=== PATIENT | female | born 1940 | race Caucasian/White ===

== ENCOUNTER 2021-05-10 09:48 | Inpatient (IN) | payer MEDICARE, MEDICAID, SELFPAY ==
[2021-05-10] VITALS (16 sets, daily range): BP systolic 80–121; BP diastolic 52–85; PULSE 49–85; RESP 16–22; TEMP 36.2–36.9; O2SAT 92–100; BMI 23.6
--- NOTE | ~2021-05-10 | CT_ITS ---
EXAMINATION: CTA chest PE protocol DATE: 05/10/2021 12:01 INDICATION: Shortness of breath. TECHNIQUE: Computed tomography angiography (CTA) of the chest was performed with 100 mL Omnipaque-350 intravenous contrast timed to evaluate the pulmonary arteries. Coronal maximum intensity projection 3D-reconstructions were created by the technologist. Automated exposure control and iterative reconst ruction technique were employed. The dose-length product was 340.30 mGy-cm. COMPARISON: Chest 2 views 05/10/2021 FINDINGS: There is moderate emphysema. There is mild atelectasis bilaterally. There are mild peripher al groundglass opacities in left upper lobe and left lower lobe. There are peripheral airspace opacit ies in right lower lobe and right middle lobe. There is mucous plugging in right lower lobe. There is a trace right pleural effusion. The heart size is normal. There are coronary artery calcifications. No pericardial effusion. There is no pulmonary embolus. There is mild right hilar lymphadenopathy. Th ere is severe thoracic spondylosis. There is chronic anterior wedging of multiple thoracic vertebral bodies. There are old healed fractures of left ninth, 10th, and 11th ribs. IMPRESSION: 1. No pulmonary embolus. 2. Peripheral airspace opacities in right lower lobe and right middle lobe, consistent with pneumonia . Mild peripheral groundglass opacities in left lung may be inflammation or infection. Consider nonco ntrast, low-dose chest CT in 3 months to exclude malignancy. 3. Moderate emphysema. 4. Mild right hilar lymphadenopathy, likely reactive. Reviewed, dictated and finalized at location A. IMPRESSION: 1. No pulmonary embolus. 2. Peripheral airspace opacities in right lower lobe and right middle lobe, con sistent with pneumonia. Mild peripheral groundglass opacities in left lung may be inflammation or infection. Consider noncontrast, low-dose chest CT in 3 leslye hs to exclude malignancy. 3. Moderate emphysema. 4. Mild right hilar lymphadenopathy, likely reactive.
--- NOTE | ~2021-05-10 | CT_ITS ---
EXAMINATION: CT brain wo con EXAM DATE: 05/10/2021 12:01 INDICATION: Transient alteration of awareness. TECHNIQUE: Spiral CT of the head was performed without contrast. Axial, coronal and sagittal images were reviewed. The dose-length product (DLP) for this examination was 605.33 mGy-cm. The exposure w as tailored according to patient size, and iterative reconstruction (ASIR) was used as additional dos e reduction technique. There is no prior study for comparison. FINDINGS: There is no acute intraparenchymal hemorrhage. No evidence of intraparenchymal brain mass lesion. No evidence of acute infarction. Please note that initial head CT has limited sensitivity f or small or acute infarctions. There is mild periventricular and subcortical hypodensity, nonspecific but probably related to small vessel ischemic disease. There is mild prominence of the sulci and v entricles related to cerebral atrophy. There is intracranial carotid arteriosclerosis. There are n o extra-axial collections. There is no mass effect or midline shift. Patient has had bilateral ocul ar lens surgery. Soft tissue is unremarkable. The visualized sinuses and mastoid air cells are well aerated. IMPRESSION: 1. No acute intracranial findings. 2. Chronic age related findings. Reviewed, dictated and finalized at location A.
--- NOTE | ~2021-05-10 | XR_ITS ---
EXAMINATION: XR chest 2V DATE: 05/10/2021 10:22 INDICATION: Weakness. Transient alteration of awareness. TECHNIQUE: Frontal and lateral views of the chest were obtained on 3 radiographs. COMPARISON: None. FINDINGS: There are peripheral interstitial opacities in the mid and lower lung zones. No pleural eff usion or pneumothorax. The heart size is normal. There are are old left rib fractures. There is a com pression fracture in lower thoracic spine, likely chronic. IMPRESSION: 1. Interstitial opacities in the mid and lower lung zones, consistent with mild pulmonary edema versu s chronic lung disease. Reviewed, dictated and finalized at location A. IMPRESSION: 1. Interstitial opacities in the mid and lower lung zones, consistent with mild pulmonary edema versus chronic lung disease.
--- NOTE | 2021-05-10 10:06 | ECG_ITS ---
Measurements Intervals [place] Rate: 79 P: AL: 0 QRS: 77 QRSD: 100 T: 66 QT: 387 QTc: 445 Interpretive Statements ATRIAL FIBRILLATION INCOMPLETE RIGHT BUNDLE BRANCH BLOCK NONSPECIFIC ST & T-WAVE ABNORMALITY- ANTEROLATERAL LEADS BASELINE ARTIFACT- V3, V5-V6 ABNORMAL ECG Electronically Signed On 05-10-2021 10:27:53 CDT by Ziyad Davila D.O.
[2021-05-10 10:21] LABS: Basophils Percent Auto 0.2 % (0.2-1.2); Eosinophils Percent Auto 0.1 % (0-4.4); Hematocrit 41.1 % (37.0-47.0); Hemoglobin 13.1 g/dL (12.0-15.0); Immature Granulocyte Absolute 0.05 K/mm3 (0.00-0.031); Immature Granulocyte Percent A 0.5 % (0-0.5); Lymphocytes Absolute Auto 1.04 K/mm3 (0.9-3.2); Lymphocytes Percent Auto 11.3 % (18.3-44.2); Mean Corpuscular HGB Conc 31.9 g/dl (32-36); Mean Corpuscular Hemoglobin 31.2 pg (26-34); Mean Corpuscular Volume 97.9 fl (80-100); Mean Platelet Volume 11.8 fl (7.4-10.4); Monocytes Absolute Auto 0.6 K/mm3 (0.1-0.6); Monocytes Percent Auto 6.2 % (2.6-8.5); Neutrophils Absolute Auto 7.5 K/mm3 (1.3-6.7); Neutrophils Percent Auto 81.7 % (45.5-73.1); Platelet Count Result 127 k/mm3 (150-375); Red Cell Distribution Width 14.8 % (11.5-14.5); White Blood Count 9.2 K/mm3 (4.5-10.0)
[2021-05-10 10:25] LABS: Add Urine Microscopic? YES; Appearance Urine Clear (Clear); Bacteria Urine Trace /hpf; Bilirubin Urine Negative (Negative); Blood Urine Negative (Negative); Color Urine Yellow (Yellow); Glucose Urine UA Negative (Negative); Ketones Urine Negative (Negative); Leukocyte Esterase Ur Trace LEU/UL (Negative); Mucus Urine Rare /lpf; Nitrate Urine Negative (Negative); Protein Urine 1+ mg/dL (Negative); RBC Urine 0-2 /hpf (0-2); Specific Grav Ur 1.013 (1.001-1.035); Squamous Epithelial Cell Urine Moderate /hpf (Few); Urobilinogen Urine Negative mg/dL (<2.0)
[2021-05-10 10:37] LABS: Prothrombin Time 13.5 Seconds (11.1-14.7)
[2021-05-10 10:39] LABS: Partial Thromboplastin Time 34.1 SECONDS (22.3-36.8)
[2021-05-10 10:44] LABS: Alanine Aminotransferase 26 U/L (4-35); Albumin Level 3.2 g/dL (3.5-5.1); Alkaline Phosphatase 67 U/L (38-126); Anion Gap 8 mmol/L (8-16); Aspartate Amino Transferase 39 U/L (14-36); Bilirubin,Total 0.6 mg/dL (0.2-1.3); Blood Urea Nitrogen 14 mg/dL (7-17); Calcium 8.1 mg/dL (8.4-10.2); Carbon Dioxide 30 mmol/L (22-30); Chloride 98 mmol/L (98-107); Estimated CRCL calculation 61 ml/min; Estimated Glomerular Filt Rate > 60; Glucose 139 mg/dL (65-105); Potassium 3.6 mmol/L (3.4-5.0); Sodium 136 mmol/L (137-145); Troponin I 0.061 ng/mL (0.000-0.034)
[2021-05-10 10:49] LABS: CRP 12.3 mg/dL (<1.0)
[2021-05-10] MEDS: SODIUM CHLORIDE 0.9% IV 1,000 ML 999 ML IV CONT ×2 (11:04→13:29)
--- NOTE | 2021-05-10 11:10 | PC.NURSE ---
called lab and added on a D dimer and procalcitonin at 1110 talked to Brianna
[2021-05-10 11:17] LABS: Alveolar/Arterial O2 Gradient 55.4 mmHg; Base Excess ABG 2.4 mEq/l (+/-2.0); Carboxyhemoglobin 0.2 % THb (0-2.0); Fractional Inspired Oxygen 28 %; HCO3 ABG 27.9 mEq/l (22.0-26.0); Methemoglobin ABG 0.3 %THb (0-1.5); Oxygen Saturation ABG 96.7 % (95.0-100.0); Oxyhemoglobin 95.7 % THb (90.0-100.0); PCO2 ABG 46.9 mmHg (35.0-45.0); PO2 ABG 88.9 mmHg (80.0-100.0); PO2 FiO2 Ratio Arterial Blood 3.17 %; Reduced Hemoglobin 3.8 %THb (0-5.0); Total Hemoglobin 12.6 g/dL (12.0-18.0); pH ABG 7.392 (7.350-7.450)
[2021-05-10 11:18] LABS: Device NASAL CANNULA; Modified Allen's Test Pass; Site Drawn RIGHT RADIAL
[2021-05-10 11:37] LABS: D Dimer 1.39 ug/mL (<0.48)
[2021-05-10 11:40] LABS: Procalcitonin 0.1 ng/mL
--- NOTE | 2021-05-10 12:40 | ED.GENADULT ---
HPI - General Adult General Chief complaint: Weakness Stated complaint: Weakness,confusion Time Seen by Provider: 05/10/21 10:04 Source: patient, family and RN notes reviewed Mode of arrival: ambulatory Limitations: no limitations History of Present Illness HPI narrative: Patient is a 81-year-old female who presents with family for evaluation of dyspnea and weakness patient was also having bouts of confusion and altered mental status this morning. Family recently picked up the family member and brought them to this region from a different state where she was living with her son. Patient was kicked out of the home by the son and has been living in her vehicle. Family went and retrieved her in the last couple of days and upon returning home with her noticed that she had had some confusion and difficulty with breathing. Patient is on chronic O2 use and has history of COPD. Patient notes she has had a productive cough over the last several days. Patient in the room resting denying any pain upon arrival. Patient was also noted to have low blood pressure. Patient denies vomiting diarrhea chest pain Related Data Home Medications Medication Instructions Recorded Confirmed albuterol mcg INHALATION PRN 05/10/21 albuterol sulfate 2.5 mg INHALATION Q4H PRN 05/10/21 atorvastatin 20 mg PO DAILY 05/10/21 carvedilol [Coreg] 12.5 mg PO BID 05/10/21 cefdinir 300 mg PO Q12H 05/10/21 ergocalciferol (vitamin D2) See Rx Instructions .ROUTE .COMPLEX 05/10/21 fluticasone propionate [Flovent 2 puff INHALATION Q12H 05/10/21 HFA] gabapentin 300 mg PO TID 05/10/21 hydrocodone-acetaminophen [[place]] 1 tablet PO Q6H PRN 05/10/21 levothyroxine 25 mcg PO DAILY 05/10/21 sertraline 100 mg PO DAILY 05/10/21 umeclidinium-vilanterol [Anoro 1 inh INHALATION DAILY 05/10/21 Ellipta] vit C,N-Mh-snozd-lutein-zeaxan BID 05/10/21 [PreserVision AREDS-2] Allergies Allergy/AdvReac Type Severity Reaction Status Date / Time Unable to Assess Allergy Verified 05/10/21 10:06 Review of Systems Review of Systems: All systems reviewed & are unremarkable except as noted in HPI and below PMFSH Past Medical History Medical History (Updated 05/10/21 @ 13:36 by Kp Chaves PA-C) COPD (chronic obstructive pulmonary disease) Depression Hyperlipidemia Hypertension Hypothyroidism Hypoxemia Pain, chronic Social History Social History (Updated 05/10/21 @ 12:44 by Kp Chaves PA-C) Smoking status: Former smoker Gender identity (if verbalized by the patient): Female Exam Narrative: Exam Narrative: GENERAL: Ill-appearing, well-nourished, and in no acute distress. HEAD: Normocephalic, atraumatic. EYES: PERRLA and EOMI. ENT: Nares clear, no rhinorrhea or epistaxis. Mucous membranes moist. Oropharynx without tonsillar hypertrophy exudate or other lesions. NECK: Supple. No adenopathy or masses. CHEST: Clear to auscultation. No respiratory distress. No wheezes rales or rhonchi HEART: Regular rate and rhythm. No murmur heard. Normal peripheral pulses. ABDOMEN: Soft, nontender, nondistended EXTREMITIES: Normal range of motion. 1+ edema lower extremities SKIN: Warm, dry, no rash. NEURO: No focal deficits. Alert and oriented. Cranial nerves II through XII grossly intact PSYCH: Normal mood and affect. Course Course Emergency Course: Patient presented with upper respiratory symptoms and hypotension will be placed in hospital has been given 2 L of fluid with improvement of blood pressure updraft treatment antibiotics initiated will be swabbed for Covid and placed in the IMCU given her elevated troponin patient is denying any dyspnea or chest pain at this time Vital Signs Vital signs: Vital Signs Temperature 98.4 F 05/10/21 09:54 Pulse Rate 84 05/10/21 09:54 Respiratory Rate 22 H 05/10/21 09:54 Blood Pressure 84/52 L 05/10/21 09:54 Pulse Oximetry 92 05/10/21 09:54 Temperature 98.4 F 05/10/21 09:54 Pulse Rat
[2021-05-10] MEDS: IPRATROPIUM BR 0.02% INH SOLN 0.5 MG/2.5 ML VIAL INHALATION (13:22)
[2021-05-10] MEDS: ALBUTEROL SULFATE NEB 2.5 MG/0.5 ML INH 5 MG INHALATION (13:22)
[2021-05-10 13:43] LABS: Troponin I 0.052 ng/mL (0.000-0.034)
--- NOTE | 2021-05-10 14:20 | PC.NURSE ---
SBAR faxed and phone to receiving unit at [phone]. ED charge aware
--- NOTE | 2021-05-10 15:36 | PM.IMHP ---
H&P: HPI History of Present Illness Date/Time: 05/10/21 15:36 this is 81-year-old female patient who was brought in by her family members for evaluation of dyspnea on weakness. Patient was having bouts of confusion and altered status this morning. The patient had been living in [place] with her son but now lives with her other son in the area. The patient was recently retrieved from [place]. Patient is on chronic oxygen at 2 L per nasal cannula for COPD. She has had a productive cough for the last several days. She denies any fever. She also was noted to have low blood pressure. Her troponin was 0.061 and than 0.052. CRP is 12.3. Chest x-ray was read as interstitial opacities in the mid and lower lung zones consistent with mild pulmonary edema versus chronic lung disease. Head CT no acute intracranial findings. Chronic age-related findings. Chest CTA was read as. No pulmonary embolus. 2. Peripheral airspace opacities in right lower lobe and right middle lobe, consistent with pneumonia. Mild peripheral groundglass opacities in left lung may be inflammation or infection. Consider noncontrast, low-dose chest CT in 3 months to exclude malignancy. 3. Moderate emphysema. 4. Mild right hilar lymphadenopathy, likely reactive. the patient was started on azithromycin and Rocephin. She was given a nebulizer treatment. She was given IV fluids for the low blood pressure. She was also swabbed for COVID-19. The patient tells me that she has not received any vaccines for COVID-19. The patient is being admitted to inpatient services on the date of service 05/10/2021. Chief Complaint: cough Review of Systems Review of Systems: All systems reviewed & are unremarkable except as noted in HPI and below Constitutional: Constitutional: Reports as per HPI and Reports no additional constitutional complaints Eyes: Eyes: Reports as per HPI and Reports no additional eye complaints ENT: Reports system reviewed and no additional complaints, except as documented and Reports Normal hearing present Cardiovascular: Cardiovascular: Reports no additional cardiovascular complaints Respiratory: Respiratory: Reports no additional respiratory complaints and Reports no additional respiratory complaints Gastrointestinal: Gastrointestinal: Reports as per HPI and Reports no additional gastrointestinal complaints Musculoskeletal: Musculoskeletal: Reports no additional musculoskeletal complaints Integumentary/Breasts: Skin/Breast: Reports system reviewed and no additional complaints, except as docu and Reports as per HPI Neurologic: Reports system reviewed and no additional complaints, except as documented, Reports as per HPI and Reports Normal hearing present Psychiatric: Psychiatric: Reports no additional psychiatric complaints and Reports as per HPI Endocrine: Endocrine: Reports no additional endocrine complaints Hematologic/Lymphatic: Hematologic/Lymphatic: Reports no additional hematologic/lymphatic complaints Allergic/Immunologic: Allergic/Immunologic: Reports no additional allergic/immunologic complaints PMFSH Past Medical History Medical History (Updated 05/10/21 @ 16:01 by Bianca Jalloh NP) Bowlegged with multiple surgical procedures to correct but had complications and was not corrected COPD (chronic obstructive pulmonary disease) Depression Hyperlipidemia Hypertension Hypothyroidism Hypoxemia Macular degeneration Pain, chronic Surgical History Surgical History (Updated 05/10/21 @ 15:49 by Bianca Jalloh NP) H/O knee surgery bilateral for Varus deformity, deformity remains after surgery Hx of cataract extraction Family History Family History (Updated 05/10/21 @ 15:50 by Bianca Jalloh NP) Mother Heart disease Diabetes mellitus Father Heart disease Social History Social History (Updated 05/10/21 @ 15:50 by Bianca Jalloh NP) Social History: the patient stated that she has 3 children. She is . 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
--- NOTE | 2021-05-10 16:10 | PC.NURSE ---
attempted to call phone report for 211. rn will call back when avail.
[2021-05-10] MEDS: LACTATED RINGERS 1,000 ML 80 ML IV CONT (16:36)
[2021-05-10] MEDS: DEXAMETHASONE SOD PHOS INJ 4 MG/ML VIAL 6 MG IV PUSH (16:40)
--- NOTE | 2021-05-10 17:29 | ADMGEN ---
This patient, Cherelle Lynn, was admitted to IMU Room 211-01. Patient/family oriented to hospital policies and general routines including ID bracelet, bed and alarms, visiting hours, pain management, procedures, bathroom and other care routines, personal items, smoking policy, room service/diet, and visiting hours. Information on how to activate the Rapid Response Team has been discussed. Patient/Family are encouraged to report perceived risks to care and to ask questions if they do not understand what they are told or what they should do.
[2021-05-10 17:31] LABS: Troponin I 0.041 ng/mL (0.000-0.034)
[2021-05-10] MEDS: GABAPENTIN 300 MG CAPSULE PO (21:47)
[2021-05-10] MEDS: FAMOTIDINE 20 MG/2 ML VIAL IV PUSH (21:48)
[2021-05-11] VITALS (20 sets, daily range): BP systolic 112–151; BP diastolic 55–83; PULSE 39–64; RESP 18–22; TEMP 36.1–37; O2SAT 92–100
[2021-05-11 04:45] LABS: Hematocrit 35.9 % (37.0-47.0); Hemoglobin 11.6 g/dL (12.0-15.0); Immature Granulocyte Absolute 0.01 K/mm3 (0.00-0.031); Immature Granulocyte Percent A 0.2 % (0-0.5); Immature Platelet Fraction Pct 8.7 % (0.9-11.2); Lymphocytes Absolute Auto 0.62 K/mm3 (0.9-3.2); Lymphocytes Percent Auto 13.3 % (18.3-44.2); Mean Corpuscular HGB Conc 32.3 g/dl (32-36); Mean Corpuscular Hemoglobin 30.9 pg (26-34); Mean Corpuscular Volume 95.7 fl (80-100); Mean Platelet Volume 11.9 fl (7.4-10.4); Monocytes Absolute Auto 0.2 K/mm3 (0.1-0.6); Monocytes Percent Auto 4.3 % (2.6-8.5); Neutrophils Absolute Auto 3.8 K/mm3 (1.3-6.7); Neutrophils Percent Auto 82.2 % (45.5-73.1); Platelet Count Result 115 k/mm3 (150-375); Red Blood Count 3.75 M/mm3 (4.2-5.4); Red Cell Distribution Width 14.6 % (11.5-14.5); White Blood Count 4.7 K/mm3 (4.5-10.0)
[2021-05-11 04:56] LABS: Alanine Aminotransferase 22 U/L (4-35); Albumin Level 2.7 g/dL (3.5-5.1); Alkaline Phosphatase 65 U/L (38-126); Anion Gap 6 mmol/L (8-16); Aspartate Amino Transferase 30 U/L (14-36); Bilirubin,Total 0.2 mg/dL (0.2-1.3); Blood Urea Nitrogen 10 mg/dL (7-17); Calcium 8.1 mg/dL (8.4-10.2); Carbon Dioxide 29 mmol/L (22-30); Chloride 103 mmol/L (98-107); Estimated CRCL calculation 82 ml/min; Estimated Glomerular Filt Rate > 60; Glucose 123 mg/dL (65-110); Magnesium 1.8 mg/dL (1.6-2.3); Potassium 3.8 mmol/L (3.4-5.0); Sodium 138 mmol/L (137-145)
--- NOTE | 2021-05-11 06:00 | ECHO_ITS ---
Patient Info Name: Cherelle Lynn Age: 81 years : 1940 Gender: Female Ht: 66 in Wt: 146 lbs BSA: 1.76 m2 HR: 53 bpm BP: 151 / 80 mmHg Heart Rhythm: Bradycardia, Sinus Rhythm Technical Quality: Fair Exam Date: 05/11/2021 11:27 AM Exam Location: [facility] Pulmonary Exam Room: 211 Patient Status: Inpatient Admit Date: 05/10/2021 Staff Ordering Physician: Kp Chaves PA-C Labor Mediator: Rocio Kaur RDCS Attending Provider: Joby Ramos MD Referring Physician: Anastacio PINON; Exam Type: CA echo doppler color flow Study Info Indications - denny weakness afib Complete two-dimensional, color flow and Doppler transthoracic echocardiogram is performed. Summary 1. Complete two-dimensional, color flow and Doppler transthoracic echocardiogram is performed. 2. Left ventricular chamber dimension is normal. 3. Left ventricular systolic function is normal, estimated at 65-70%. 4. There is no increased left ventricular wall thickness. 5. The left ventricular diastolic function is normal. 6. Unable to estimate PA systolic pressure due to poor spectral resolution of tricuspid regurgitant jet velocity. 7. There is trace tricuspid valve regurgitation. Left Ventricle Left ventricular chamber dimension is normal. Left ventricular systolic function is normal, estimated at 65-70%. There is no increased left ventricular wall thickness. The left ventricular diastolic function is normal. Right Ventricle Right ventricular chamber dimension is normal. Right ventricular systolic function is normal. Left Atria Left atrial chamber dimension is normal. Right Atria Right atrial chamber dimension is mildly enlarged. Aortic Valve The aortic valve is not well visualized. There is no aortic valve stenosis. There is no aortic valve regurgitation. Pulmonic Valve The pulmonic valve is normal. There is trace pulmonic regurgitation. Mitral Valve The mitral valve has normal leaflets. There is trace mitral valve regurgitation. The mitral valve annulus is mildly calcified. Tricuspid Valve The tricuspid valve leaflets are normal. There is trace tricuspid valve regurgitation. Unable to estimate PA systolic pressure due to poor spectral resolution of tricuspid regurgitant jet velocity. Pericardium/Pleural The pericardium appears normal. There is no pericardial effusion. Inferior Vena Cava Normal inferior vena cava with >50% collapse upon inspiration consistent with normal right atrial pressure, 5 mmHg. Aorta The aortic root size at the sinus of Valsalva is normal. There is mild aortic atherosclerosis. Left Ventricular Outflow Tract Name Value Normal LVOT 2D LVOT Diameter 2.0 cm LVOT Doppler LVOT Peak Gradient 5 mmHg LVOT Mean Gradient 3 mmHg LVOT VTI 30 cm LVOT VTI/AV VTI Ratio 0.9 LVOT Stroke Volume 95 ml LVOT CO 15.4 l/min LVOT CI 8.7 l/min/m2 Pulmonic
[2021-05-11 06:23] LABS: Thyroid Stimulating Hormone Reflex 0.805 uIU/mL (0.465-4.68)
[2021-05-11] MEDS: LEVOTHYROXINE SODIUM 25 MCG TABLET PO (06:33)
[2021-05-11] MEDS: ATORVASTATIN 20 MG TABLET PO (08:52)
[2021-05-11] MEDS: DEXAMETHASONE SOD PHOS INJ 4 MG/ML VIAL 6 MG IV PUSH (08:52)
[2021-05-11] MEDS: FAMOTIDINE 20 MG/2 ML VIAL IV PUSH ×2 (08:53→21:01)
[2021-05-11] MEDS: GABAPENTIN 300 MG CAPSULE PO ×3 (08:55→18:02)
[2021-05-11] MEDS: SERTRALINE HCL 50 MG TABLET 100 MG PO (08:56)
[2021-05-11] MEDS: OPTI-GEN TAB 1 TABLET PO ×2 (08:56→18:02)
[2021-05-11] MEDS: UMECLIDINIUM/VILANTEROL 62.5-25 MCG ELLIPTA 1 PUFF INHALATION (09:41)
--- NOTE | 2021-05-11 13:44 | PM.IMPN ---
Progress Note: A&P Assessment and Plan (1) Pneumonia: Code(s): J18.9 - Pneumonia, unspecified organism Status: Acute Assessment and Plan: Blood and sputum cultures are pending. Continue with azithromycin and Rocephin per antibiotic stewardship. Continue with inhalers. CTA negative for PE but shows peripheral airspace opacities in the right lower lobe and right middle lobe consistent with pneumonia. Mild peripheral ground-glass opacities in left lung may be inflammation or infection with mild right hilar lymphadenopathy likely reactive noted moderate emphysema (2) Person under investigation for COVID-19: Code(s): Z20.822 - Contact with and (suspected) exposure to COVID-19 Status: Acute Assessment and Plan: started on Decadron. COVID 19 swab pending. Remains on droplet isolation. Never had COVID vaccination (3) Acute hypotension: Code(s): I95.9 - Hypotension, unspecified Status: Acute Assessment and Plan: likely from underlying infection. this is resolved with holding blood pressure medication and treatment of her underlying infection. Resume her carvedilol will stop her (4) Macular degeneration: Code(s): H35.30 - Unspecified macular degeneration Status: Chronic Assessment and Plan: The patient is on PreserVision. (5) Hyperlipidemia: Code(s): E78.5 - Hyperlipidemia, unspecified Status: Chronic Assessment and Plan: Continue with atorvastatin. (6) COPD (chronic obstructive pulmonary disease): Code(s): J44.9 - Chronic obstructive pulmonary disease, unspecified Status: Chronic Assessment and Plan: symptoms suggestive of COPD exacerbation On Decadron and bronchodilators which will be continued (7) Hypertension: Code(s): I10 - Essential (primary) hypertension Status: Chronic Assessment and Plan: blood pressure medication initially on hold due to hypotension will resume (8) Hypothyroidism: Code(s): E03.9 - Hypothyroidism, unspecified Status: Chronic Assessment and Plan: Check thyroid levels continue with levothyroxine. (9) Atrial fibrillation: Code(s): I48.91 - Unspecified atrial fibrillation Status: Acute Assessment and Plan: after reviewing the EKG this appears to be more of atrial flutter. Could be fib flutter. The patient is not on any anticoagulation. She is on aCarvedilol was discontinued Rate controlled more with slow ventricular response Will lower the dose of carvedilol to 6.25 twice a day Not on anticoagulation Echo done on 05/11/2021 with normal ejection fraction of 65-70% no valvular abnormality seen (10) Acute and chronic respiratory failure: Code(s): J96.20 - Acute and chronic respiratory failure, unspecified whether with hypoxia or hypercapnia Status: Acute Assessment and Plan: on oxygen at home Continue oxygen supplementation and titrate to keep oxygen level more than 90% (11) DVT prophylaxis: Code(s): Z29.9 - Encounter for prophylactic measures, unspecified Status: Acute Assessment and Plan: start Lovenox (12) Altered mental status: Code(s): R41.82 - Altered mental status, unspecified Status: Acute Assessment and Plan: CT head negative likely metabolic (13) Elevated troponin: Code(s): R77.8 - Other specified abnormalities of plasma proteins Status: Acute Assessment and Plan: flat levels not suggestive of ACS Subjective Date/time seen: 05/11/21 13:44 Interval history: Breathing a little better today. She is worried about losing her glasses and wants me to find it. No fever chills. Continues to cough. Remains on 2 L oxygen without any worsening. Review of Systems Review of Systems: All systems reviewed & are unremarkable except as noted in HPI and below Exam Narrative: Exam Narrative: GENERAL: The patient is well de
[2021-05-11 16:46] LABS: SARS-CoV-2 RNA PCR Positive
[2021-05-12] VITALS (18 sets, daily range): BP systolic 135–157; BP diastolic 57–62; PULSE 38–58; RESP 16–21; TEMP 36.1–36.4; O2SAT 95–100
[2021-05-12] MEDS: LACTATED RINGERS 1,000 ML 80 ML IV CONT (03:58)
[2021-05-12 05:20] LABS: Basophils Percent Auto 0.2 % (0.2-1.2); Hematocrit 38.8 % (37.0-47.0); Hemoglobin 12.2 g/dL (12.0-15.0); Immature Granulocyte Absolute 0.03 K/mm3 (0.00-0.031); Immature Granulocyte Percent A 0.5 % (0-0.5); Lymphocytes Absolute Auto 0.94 K/mm3 (0.9-3.2); Lymphocytes Percent Auto 15.8 % (18.3-44.2); Mean Corpuscular HGB Conc 31.4 g/dl (32-36); Mean Corpuscular Hemoglobin 30.8 pg (26-34); Mean Platelet Volume 11.9 fl (7.4-10.4); Monocytes Absolute Auto 0.6 K/mm3 (0.1-0.6); Monocytes Percent Auto 10.1 % (2.6-8.5); Neutrophils Absolute Auto 4.4 K/mm3 (1.3-6.7); Neutrophils Percent Auto 73.4 % (45.5-73.1); Platelet Count Result 156 k/mm3 (150-375); Red Blood Count 3.96 M/mm3 (4.2-5.4); Red Cell Distribution Width 14.6 % (11.5-14.5)
[2021-05-12 05:34] LABS: Anion Gap 4 mmol/L (8-16); Blood Urea Nitrogen 11 mg/dL (7-17); Calcium 8.1 mg/dL (8.4-10.2); Carbon Dioxide 32 mmol/L (22-30); Chloride 105 mmol/L (98-107); Estimated CRCL calculation 82 ml/min; Estimated Glomerular Filt Rate > 60; Glucose 110 mg/dL (65-110); Potassium 3.3 mmol/L (3.4-5.0); Sodium 141 mmol/L (137-145)
[2021-05-12] MEDS: LEVOTHYROXINE SODIUM 25 MCG TABLET PO (06:18)
[2021-05-12] MEDS: UMECLIDINIUM/VILANTEROL 62.5-25 MCG ELLIPTA 1 PUFF INHALATION (08:09)
[2021-05-12] MEDS: FAMOTIDINE 20 MG/2 ML VIAL IV PUSH ×2 (08:22→20:38)
[2021-05-12] MEDS: OPTI-GEN TAB 1 TABLET PO ×2 (08:28→16:00)
[2021-05-12] MEDS: GABAPENTIN 300 MG CAPSULE PO ×3 (08:28→16:00)
[2021-05-12] MEDS: ATORVASTATIN 20 MG TABLET PO (08:30)
[2021-05-12] MEDS: DEXAMETHASONE SOD PHOS INJ 4 MG/ML VIAL 6 MG IV PUSH (08:31)
[2021-05-12] MEDS: SERTRALINE HCL 50 MG TABLET 100 MG PO (08:31)
--- NOTE | 2021-05-12 11:46 | PM.IMPN ---
Progress Note: A&P Assessment and Plan (1) Pneumonia: Code(s): J18.9 - Pneumonia, unspecified organism Status: Acute Assessment and Plan: Blood and sputum cultures are pending. Continue with azithromycin and Rocephin per antibiotic stewardship. Continue with inhalers. CTA negative for PE but shows peripheral airspace opacities in the right lower lobe and right middle lobe consistent with pneumonia. Mild peripheral ground-glass opacities in left lung may be inflammation or infection with mild right hilar lymphadenopathy likely reactive noted moderate emphysema COVID positive. Will start remdesivir (2) Person under investigation for COVID-19: Code(s): Z20.822 - Contact with and (suspected) exposure to COVID-19 Status: Acute Assessment and Plan: started on Decadron. COVID 19 swab positive Remains on droplet isolation. Never had COVID vaccination Start REMdesivir (3) Acute hypotension: Code(s): I95.9 - Hypotension, unspecified Status: Acute Assessment and Plan: likely from underlying infection. this is resolved with holding blood pressure medication and treatment of her underlying infection. Resume her carvedilol will stop her (4) Macular degeneration: Code(s): H35.30 - Unspecified macular degeneration Status: Chronic Assessment and Plan: The patient is on PreserVision. (5) Hyperlipidemia: Code(s): E78.5 - Hyperlipidemia, unspecified Status: Chronic Assessment and Plan: Continue with atorvastatin. (6) COPD (chronic obstructive pulmonary disease): Code(s): J44.9 - Chronic obstructive pulmonary disease, unspecified Status: Chronic Assessment and Plan: symptoms suggestive of COPD exacerbation On Decadron and bronchodilators which will be continued (7) Hypertension: Code(s): I10 - Essential (primary) hypertension Status: Chronic Assessment and Plan: blood pressure medication initially on hold due to hypotension will resume (8) Hypothyroidism: Code(s): E03.9 - Hypothyroidism, unspecified Status: Chronic Assessment and Plan: Check thyroid levels continue with levothyroxine. (9) Atrial fibrillation: Code(s): I48.91 - Unspecified atrial fibrillation Status: Acute Assessment and Plan: after reviewing the EKG this appears to be more of atrial flutter. Could be fib flutter. The patient is not on any anticoagulation. She is on aCarvedilol was discontinued Rate controlled more with slow ventricular response Will lower the dose of carvedilol to 6.25 twice a day still bradycardic and has been on hold carvedilol Not on anticoagulation Echo done on 05/11/2021 with normal ejection fraction of 65-70% no valvular abnormality seen (10) Acute and chronic respiratory failure: Code(s): J96.20 - Acute and chronic respiratory failure, unspecified whether with hypoxia or hypercapnia Status: Acute Assessment and Plan: on oxygen at home Continue oxygen supplementation and titrate to keep oxygen level more than 90% (11) DVT prophylaxis: Code(s): Z29.9 - Encounter for prophylactic measures, unspecified Status: Acute Assessment and Plan: start Lovenox (12) Altered mental status: Code(s): R41.82 - Altered mental status, unspecified Status: Acute Assessment and Plan: CT head negative likely metabolic (13) Elevated troponin: Code(s): R77.8 - Other specified abnormalities of plasma proteins Status: Acute Assessment and Plan: flat levels not suggestive of ACS Subjective Date/time seen: 05/12/21 11:46 Interval history: Feels better. . She tested positive for COVID. Remains coughing. No fever or chills Review of Systems Review of Systems: All systems reviewed & are unremarkable except as noted in HPI and below Exam Narrative: Exam Narrative: GENERAL: The patie
[2021-05-12] MEDS: POTASSIUM CHLORIDE 20 MEQ TABLET 40 MEQ PO (12:04)
[2021-05-12 12:30] LABS: Alanine Aminotransferase 36 U/L (4-35); Estimated CRCL calculation 82 ml/min; Estimated Glomerular Filt Rate > 60
[2021-05-12 12:36] LABS: INR 1.1; Prothrombin Time 13.6 Seconds (11.1-14.7)
[2021-05-12] MEDS: REMDESIVIR 200 MG/NS 250 ML 200 MG/250 ML BAG 250 MG IVPB (14:02)
[2021-05-12 16:48] LABS: Glucose Point of Care 144 mg/dl (65-105)
[2021-05-13] VITALS (12 sets, daily range): BP systolic 126–167; BP diastolic 52–70; PULSE 37–70; RESP 12–20; TEMP 36.2–36.8; O2SAT 94–100
[2021-05-13] MEDS: LEVOTHYROXINE SODIUM 25 MCG TABLET PO (05:06)
[2021-05-13 05:51] LABS: Alanine Aminotransferase 52 U/L (4-35); Estimated CRCL calculation 93 ml/min; Estimated Glomerular Filt Rate > 60; INR 1.1; Prothrombin Time 13.6 Seconds (11.1-14.7)
[2021-05-13] MEDS: OPTI-GEN TAB 1 TABLET PO ×2 (08:14→16:33)
[2021-05-13] MEDS: ENOXAPARIN 40 MG/0.4 ML SYRINGE SUB-Q (08:14)
[2021-05-13] MEDS: SERTRALINE HCL 50 MG TABLET 100 MG PO (08:14)
[2021-05-13] MEDS: FAMOTIDINE 20 MG/2 ML VIAL IV PUSH ×2 (08:14→20:12)
[2021-05-13] MEDS: GABAPENTIN 300 MG CAPSULE PO ×3 (08:14→16:33)
[2021-05-13] MEDS: ERGOCALCIFEROL 50,000 UNIT CAPSULE 50000 UNITS PO (08:14)
[2021-05-13] MEDS: ATORVASTATIN 20 MG TABLET PO (08:14)
[2021-05-13] MEDS: DEXAMETHASONE SOD PHOS INJ 4 MG/ML VIAL 6 MG IV PUSH (08:14)
[2021-05-13] MEDS: UMECLIDINIUM/VILANTEROL 62.5-25 MCG ELLIPTA 1 PUFF INHALATION (09:02)
[2021-05-13] MEDS: REMDESIVIR 100 MG/NS 250 ML 100 MG/250 ML BAG 250 MG IVPB (10:43)
--- NOTE | 2021-05-13 15:28 | PM.IMPN ---
Progress Note: A&P Assessment and Plan (1) Pneumonia: Code(s): J18.9 - Pneumonia, unspecified organism Status: Acute Assessment and Plan: Blood and sputum cultures are pending. Continue with azithromycin and Rocephin per antibiotic stewardship. Continue with inhalers. CTA negative for PE but shows peripheral airspace opacities in the right lower lobe and right middle lobe consistent with pneumonia. Mild peripheral ground-glass opacities in left lung may be inflammation or infection with mild right hilar lymphadenopathy likely reactive noted moderate emphysema COVID positive. started on remdesivir (2) Person under investigation for COVID-19: Code(s): Z20.822 - Contact with and (suspected) exposure to COVID-19 Status: Acute Assessment and Plan: started on Decadron. COVID 19 swab positive Remains on droplet isolation. Never had COVID vaccination started on REMdesivir (3) Acute hypotension: Code(s): I95.9 - Hypotension, unspecified Status: Acute Assessment and Plan: likely from underlying infection. this is resolved with holding blood pressure medication and treatment of her underlying infection. Resume her carvedilol will stop her (4) Macular degeneration: Code(s): H35.30 - Unspecified macular degeneration Status: Chronic Assessment and Plan: The patient is on PreserVision. (5) Hyperlipidemia: Code(s): E78.5 - Hyperlipidemia, unspecified Status: Chronic Assessment and Plan: Continue with atorvastatin. (6) COPD (chronic obstructive pulmonary disease): Code(s): J44.9 - Chronic obstructive pulmonary disease, unspecified Status: Chronic Assessment and Plan: symptoms suggestive of COPD exacerbation On Decadron and bronchodilators which will be continued (7) Hypertension: Code(s): I10 - Essential (primary) hypertension Status: Chronic Assessment and Plan: blood pressure medication initially on hold due to hypotension will resume (8) Hypothyroidism: Code(s): E03.9 - Hypothyroidism, unspecified Status: Chronic Assessment and Plan: Check thyroid levels continue with levothyroxine. (9) Atrial fibrillation: Code(s): I48.91 - Unspecified atrial fibrillation Status: Acute Assessment and Plan: after reviewing the EKG this appears to be more of atrial flutter. Could be fib flutter. The patient is not on any anticoagulation. She is on aCarvedilol was discontinued Rate controlled more with slow ventricular response Will lower the dose of carvedilol to 6.25 twice a day still bradycardic and has been on hold carvedilol Not on anticoagulation Echo done on 05/11/2021 with normal ejection fraction of 65-70% no valvular abnormality seen (10) Acute and chronic respiratory failure: Code(s): J96.20 - Acute and chronic respiratory failure, unspecified whether with hypoxia or hypercapnia Status: Acute Assessment and Plan: on oxygen at home Continue oxygen supplementation and titrate to keep oxygen level more than 90% (11) DVT prophylaxis: Code(s): Z29.9 - Encounter for prophylactic measures, unspecified Status: Acute Assessment and Plan: start Lovenox for DVT prophylaxis (12) Altered mental status: Code(s): R41.82 - Altered mental status, unspecified Status: Acute Assessment and Plan: CT head negative likely metabolic (13) Elevated troponin: Code(s): R77.8 - Other specified abnormalities of plasma proteins Status: Acute Assessment and Plan: flat levels not suggestive of ACS Subjective Date/time seen: 05/13/21 15:28 Interval history: per nursing staff she is constantly calling for going to the bathroom however she denies so. She feels better questions me when she can go home she is on 2 L oxygen which is stable at home she is not much ambulatory at home. She
[2021-05-14] VITALS (14 sets, daily range): BP systolic 96–163; BP diastolic 50–71; PULSE 43–62; RESP 16–20; TEMP 36.2–36.9; O2SAT 94–99
[2021-05-14 05:07] LABS: Basophils Percent Auto 0.2 % (0.2-1.2); Hematocrit 38.5 % (37.0-47.0); Hemoglobin 12.9 g/dL (12.0-15.0); Immature Granulocyte Absolute 0.03 K/mm3 (0.00-0.031); Immature Granulocyte Percent A 0.5 % (0-0.5); Lymphocytes Absolute Auto 1.44 K/mm3 (0.9-3.2); Mean Corpuscular HGB Conc 33.5 g/dl (32-36); Mean Corpuscular Hemoglobin 31.2 pg (26-34); Mean Platelet Volume 11.6 fl (7.4-10.4); Monocytes Absolute Auto 0.8 K/mm3 (0.1-0.6); Neutrophils Absolute Auto 3.2 K/mm3 (1.3-6.7); Neutrophils Percent Auto 58.3 % (45.5-73.1); Platelet Count Result 176 k/mm3 (150-375); Red Blood Count 4.14 M/mm3 (4.2-5.4); White Blood Count 5.5 K/mm3 (4.5-10.0)
[2021-05-14 05:16] LABS: INR 1.2; Prothrombin Time 15.4 Seconds (11.1-14.7)
[2021-05-14 05:25] LABS: Alanine Aminotransferase 47 U/L (4-35); Anion Gap 3 mmol/L (8-16); Blood Urea Nitrogen 13 mg/dL (7-17); Carbon Dioxide 32 mmol/L (22-30); Chloride 104 mmol/L (98-107); Estimated CRCL calculation 82 ml/min; Estimated Glomerular Filt Rate > 60; Glucose 81 mg/dL (65-110); Potassium 3.2 mmol/L (3.4-5.0); Sodium 139 mmol/L (137-145)
[2021-05-14] MEDS: LEVOTHYROXINE SODIUM 25 MCG TABLET PO (06:55)
[2021-05-14] MEDS: REMDESIVIR 100 MG/NS 250 ML 100 MG/250 ML BAG 250 MG IVPB (10:10)
[2021-05-14] MEDS: DEXAMETHASONE SOD PHOS INJ 4 MG/ML VIAL 6 MG IV PUSH (10:13)
[2021-05-14] MEDS: ATORVASTATIN 20 MG TABLET PO (10:14)
[2021-05-14] MEDS: ENOXAPARIN 40 MG/0.4 ML SYRINGE SUB-Q ×2 (10:14→22:23)
[2021-05-14] MEDS: SERTRALINE HCL 50 MG TABLET 100 MG PO (10:14)
[2021-05-14] MEDS: OPTI-GEN TAB 1 TABLET PO ×2 (10:14→18:30)
[2021-05-14] MEDS: FAMOTIDINE 20 MG/2 ML VIAL IV PUSH ×2 (10:14→22:23)
[2021-05-14] MEDS: GABAPENTIN 300 MG CAPSULE PO ×3 (10:15→18:30)
[2021-05-14] MEDS: UMECLIDINIUM/VILANTEROL 62.5-25 MCG ELLIPTA 1 PUFF INHALATION (13:20)
[2021-05-14] MEDS: FLUTICASONE PROP 110 MCG INHALER 12 GM (*SP) 2 PUFF INHALATION ×2 (13:21→21:36)
--- NOTE | 2021-05-14 16:06 | PC.NURSE ---
Notified Dr Gilliam Patient has had Liquid Diarrhea X2. Imodium PRN has been ordered.
--- NOTE | 2021-05-14 16:23 | PC.NURSE ---
This patient, Cherelle Lynn, was transferred to [ [facility]] on 05/14/21 at 1630. Personal belongings sent with patient. Report given to [ dilip]. Appropriate documentation sent with patient.
--- NOTE | 2021-05-14 16:24 | PC.NURSE ---
Spoke with dr Gilliam regarding Pt HR in the 40's when sleeping, and reutrns to the 50's and 60's when awake. He said it is from the remdesivier. Coreh has been held.
--- NOTE | 2021-05-14 16:40 | PM.IMPN ---
Progress Note: A&P Assessment and Plan (1) Pneumonia: Code(s): J18.9 - Pneumonia, unspecified organism Status: Acute Assessment and Plan: Blood and sputum cultures are pending. Continue with azithromycin and Rocephin per antibiotic stewardship. Continue with inhalers. CTA negative for PE but shows peripheral airspace opacities in the right lower lobe and right middle lobe consistent with pneumonia. Mild peripheral ground-glass opacities in left lung may be inflammation or infection with mild right hilar lymphadenopathy likely reactive noted moderate emphysema COVID positive. started on remdesivir 05/14/2021 elderly very hard of hearing, unable to provide detailed review of symptom, patient remained clinically stable has no fever, requiring 4 L of oxygen, patient is on dexamethasone and started the patient Remdesivir will continue to monitor (2) Person under investigation for COVID-19: Code(s): Z20.822 - Contact with and (suspected) exposure to COVID-19 Status: Acute Assessment and Plan: started on Decadron. COVID 19 swab positive Remains on droplet isolation. Never had COVID vaccination started on REMdesivir (3) Acute hypotension: Code(s): I95.9 - Hypotension, unspecified Status: Acute Assessment and Plan: likely from underlying infection. this is resolved with holding blood pressure medication and treatment of her underlying infection. Resume her carvedilol will stop her (4) Macular degeneration: Code(s): H35.30 - Unspecified macular degeneration Status: Chronic Assessment and Plan: The patient is on PreserVision. (5) Hyperlipidemia: Code(s): E78.5 - Hyperlipidemia, unspecified Status: Chronic Assessment and Plan: Continue with atorvastatin. (6) COPD (chronic obstructive pulmonary disease): Code(s): J44.9 - Chronic obstructive pulmonary disease, unspecified Status: Chronic Assessment and Plan: symptoms suggestive of COPD exacerbation On Decadron and bronchodilators which will be continued (7) Hypertension: Code(s): I10 - Essential (primary) hypertension Status: Chronic Assessment and Plan: blood pressure medication initially on hold due to hypotension will resume (8) Hypothyroidism: Code(s): E03.9 - Hypothyroidism, unspecified Status: Chronic Assessment and Plan: Check thyroid levels continue with levothyroxine. (9) Atrial fibrillation: Code(s): I48.91 - Unspecified atrial fibrillation Status: Acute Assessment and Plan: after reviewing the EKG this appears to be more of atrial flutter. Could be fib flutter. The patient is not on any anticoagulation. She is on aCarvedilol was discontinued Rate controlled more with slow ventricular response Will lower the dose of carvedilol to 6.25 twice a day still bradycardic and has been on hold carvedilol Not on anticoagulation Echo done on 05/11/2021 with normal ejection fraction of 65-70% no valvular abnormality seen (10) Acute and chronic respiratory failure: Code(s): J96.20 - Acute and chronic respiratory failure, unspecified whether with hypoxia or hypercapnia Status: Acute Assessment and Plan: on oxygen at home Continue oxygen supplementation and titrate to keep oxygen level more than 90% (11) DVT prophylaxis: Code(s): Z29.9 - Encounter for prophylactic measures, unspecified Status: Acute Assessment and Plan: start Lovenox for DVT prophylaxis (12) Altered mental status: Code(s): R41.82 - Altered mental status, unspecified Status: Acute Assessment and Plan: CT head negative likely metabolic (13) Elevated troponin: Code(s): R77.8 - Other specified abnormalities of plasma proteins Status: Acute Assessment and Plan: flat levels not suggestive of ACS Subjective Date/time seen: 05/14/21 16
--- NOTE | 2021-05-14 18:36 | PC.NURSE ---
Patient was transferred from IMU to [address] [place] [address] via bed.
[2021-05-15] VITALS (9 sets, daily range): BP systolic 114–153; BP diastolic 46–73; PULSE 48–56; RESP 18–24; TEMP 36.6–36.9; O2SAT 94–100
[2021-05-15] MEDS: LEVOTHYROXINE SODIUM 25 MCG TABLET PO (06:27)
[2021-05-15 07:16] LABS: INR 1.3; Prothrombin Time 15.7 Seconds (11.1-14.7)
[2021-05-15 07:18] LABS: Alanine Aminotransferase 35 U/L (4-35); Estimated CRCL calculation 82 ml/min; Estimated Glomerular Filt Rate > 60
[2021-05-15] MEDS: FAMOTIDINE 20 MG/2 ML VIAL IV PUSH ×2 (09:00→22:03)
[2021-05-15] MEDS: SERTRALINE HCL 50 MG TABLET 100 MG PO (09:00)
[2021-05-15] MEDS: DEXAMETHASONE SOD PHOS INJ 4 MG/ML VIAL 6 MG IV PUSH (09:00)
[2021-05-15] MEDS: GABAPENTIN 300 MG CAPSULE PO ×3 (09:01→16:18)
[2021-05-15] MEDS: ATORVASTATIN 20 MG TABLET PO (09:01)
[2021-05-15] MEDS: OPTI-GEN TAB 1 TABLET PO ×2 (09:01→16:17)
[2021-05-15] MEDS: ENOXAPARIN 40 MG/0.4 ML SYRINGE SUB-Q ×2 (09:01→22:03)
[2021-05-15] MEDS: FLUTICASONE PROP 110 MCG INHALER 12 GM (*SP) 2 PUFF INHALATION ×2 (09:02→21:20)
[2021-05-15] MEDS: UMECLIDINIUM/VILANTEROL 62.5-25 MCG ELLIPTA 1 PUFF INHALATION (09:03)
[2021-05-15 10:08] LABS: Alanine Aminotransferase 37 U/L (4-35); Albumin Level 2.7 g/dL (3.5-5.1); Alkaline Phosphatase 71 U/L (38-126); Anion Gap 4 mmol/L (8-16); Aspartate Amino Transferase 26 U/L (14-36); Bilirubin,Total 0.4 mg/dL (0.2-1.3); Blood Urea Nitrogen 12 mg/dL (7-17); CRP 1.2 mg/dL (<1.0); Calcium 8.4 mg/dL (8.4-10.2); Carbon Dioxide 30 mmol/L (22-30); Chloride 103 mmol/L (98-107); Estimated CRCL calculation 82 ml/min; Estimated Glomerular Filt Rate > 60; Glucose 83 mg/dL (65-110); Magnesium 1.8 mg/dL (1.6-2.3); Potassium 3.1 mmol/L (3.4-5.0); Sodium 137 mmol/L (137-145)
[2021-05-15] MEDS: REMDESIVIR 100 MG/NS 250 ML 100 MG/250 ML BAG 250 MG IVPB (10:12)
[2021-05-15 10:31] LABS: Basophils Percent Auto 0.2 % (0.2-1.2); Hematocrit 39.6 % (37.0-47.0); Immature Granulocyte Absolute 0.03 K/mm3 (0.00-0.031); Immature Granulocyte Percent A 0.5 % (0-0.5); Lymphocytes Absolute Auto 1.33 K/mm3 (0.9-3.2); Lymphocytes Percent Auto 23.2 % (18.3-44.2); Mean Corpuscular HGB Conc 32.8 g/dl (32-36); Mean Corpuscular Hemoglobin 30.9 pg (26-34); Mean Corpuscular Volume 94.1 fl (80-100); Mean Platelet Volume 11.9 fl (7.4-10.4); Monocytes Absolute Auto 0.7 K/mm3 (0.1-0.6); Neutrophils Absolute Auto 3.7 K/mm3 (1.3-6.7); Neutrophils Percent Auto 64.1 % (45.5-73.1); Platelet Count Result 190 k/mm3 (150-375); Red Blood Count 4.21 M/mm3 (4.2-5.4); Red Cell Distribution Width 14.2 % (11.5-14.5); White Blood Count 5.7 K/mm3 (4.5-10.0)
--- NOTE | 2021-05-15 16:01 | P.PNIM_ITS ---
Progress Note: A&P Assessment and Plan (1) Pneumonia: Code(s): J18.9 - Pneumonia, unspecified organism Status: Acute Assessment and Plan: Blood and sputum cultures are pending. Continue with azithromycin and Rocephin per antibiotic stewardship. Continue with inhalers. CTA negative for PE but shows peripheral airspace opacities in the right lower lobe and right middle lobe consistent with pneumonia. Mild peripheral ground- glass opacities in left lung may be inflammation or infection with mild right hilar lymphadenopathy likely reactive noted moderate emphysema COVID positive. started on remdesivir 05/14/2021 elderly very hard of hearing, unable to provide detailed review of symptom, patient remained clinically stable has no fever, requiring 4 L of oxygen, patient is on dexamethasone and started the patient Remdesivir will continue to monitor. 05/15 2021 patient was started on dexamethasone 04/04 and Remdesivir / patient clinical symptoms are improved patient is now requiring 2 L of oxygen and there is no fever, if patient remains clinically patient will complete 5 day course of Remdisvir on 05/16 able discharge the patient tomorrow. (2) Person under investigation for COVID-19: Code(s): Z20.822 - Contact with and (suspected) exposure to COVID-19 Status: Acute Assessment and Plan: started on Decadron. COVID 19 swab positive Remains on droplet isolation. Never had COVID vaccination started on REMdesivir (3) Acute hypotension: Code(s): I95.9 - Hypotension, unspecified Status: Acute Assessment and Plan: likely from underlying infection. this is resolved with holding blood pressure medication and treatment of her underlying infection. Resume her carvedilol will stop her (4) Macular degeneration: Code(s): H35.30 - Unspecified macular degeneration Status: Chronic Assessment and Plan: The patient is on PreserVision. (5) Hyperlipidemia: Code(s): E78.5 - Hyperlipidemia, unspecified Status: Chronic Assessment and Plan: Continue with atorvastatin. (6) COPD (chronic obstructive pulmonary disease): Code(s): J44.9 - Chronic obstructive pulmonary disease, unspecified Status: Chronic Assessment and Plan: symptoms suggestive of COPD exacerbation On Decadron and bronchodilators which will be continued (7) Hypertension: Code(s): I10 - Essential (primary) hypertension Status: Chronic Assessment and Plan: blood pressure medication initially on hold due to hypotension will resume (8) Hypothyroidism: Code(s): E03.9 - Hypothyroidism, unspecified Status: Chronic Assessment and Plan: Check thyroid levels continue with levothyroxine. (9) Atrial fibrillation: Code(s): I48.91 - Unspecified atrial fibrillation Status: Acute Assessment and Plan: after reviewing the EKG this appears to be more of atrial flutter. Could be fib flutter. The patient is not on any anticoagulation. She is on aCarvedilol was discontinued Rate controlled more with slow ventricular response Will lower the dose of carvedilol to 6.25 twice a day still bradycardic and has been on hold carvedilol Not on anticoagulation Echo done on 05/11/2021 with normal ejection fraction of 65-70% no valvular abnormality seen (10) Acute and chronic respiratory failure: Code(s): J96.20 - Acute and chronic respiratory failure, unspecified whether with hypoxia or hypercapnia Status: Acute Assessment and Plan: on oxygen at home
[2021-05-16] VITALS (8 sets, daily range): BP systolic 99–143; BP diastolic 44–59; PULSE 42–68; RESP 16–18; TEMP 36.4–37.8; O2SAT 91–98
[2021-05-16] MEDS: LEVOTHYROXINE SODIUM 25 MCG TABLET PO (05:07)
--- NOTE | 2021-05-16 06:28 | PC.NURSE ---
Encouraged patient to do as much ADL as possible. Patient is able to reposition in bed with out staff assistance. Patient does need more encouraging to preform task herself, would rather staff does them for her. Educated patient on the importance of trying to improved and keep as much independence as possible.
[2021-05-16 06:44] LABS: Basophils Percent Auto 0.1 % (0.2-1.2); Eosinophils Percent Auto 0.2 % (0-4.4); Hematocrit 40.6 % (37.0-47.0); Hemoglobin 13.1 g/dL (12.0-15.0); Immature Granulocyte Absolute 0.05 K/mm3 (0.00-0.031); Immature Granulocyte Percent A 0.6 % (0-0.5); Lymphocytes Absolute Auto 1.53 K/mm3 (0.9-3.2); Lymphocytes Percent Auto 18.1 % (18.3-44.2); Mean Corpuscular HGB Conc 32.3 g/dl (32-36); Mean Corpuscular Hemoglobin 30.6 pg (26-34); Mean Corpuscular Volume 94.9 fl (80-100); Mean Platelet Volume 11.2 fl (7.4-10.4); Monocytes Absolute Auto 0.9 K/mm3 (0.1-0.6); Monocytes Percent Auto 10.9 % (2.6-8.5); Neutrophils Absolute Auto 5.9 K/mm3 (1.3-6.7); Neutrophils Percent Auto 70.1 % (45.5-73.1); Platelet Count Result 209 k/mm3 (150-375); Red Blood Count 4.28 M/mm3 (4.2-5.4); Red Cell Distribution Width 14.1 % (11.5-14.5); White Blood Count 8.4 K/mm3 (4.5-10.0)
[2021-05-16 07:05] LABS: Alanine Aminotransferase 30 U/L (4-35); Albumin Level 2.8 g/dL (3.5-5.1); Alkaline Phosphatase 68 U/L (38-126); Anion Gap 6 mmol/L (8-16); Aspartate Amino Transferase 22 U/L (14-36); Bilirubin,Total 0.5 mg/dL (0.2-1.3); Blood Urea Nitrogen 12 mg/dL (7-17); CRP 1.3 mg/dL (<1.0); Calcium 8.2 mg/dL (8.4-10.2); Carbon Dioxide 30 mmol/L (22-30); Chloride 100 mmol/L (98-107); Estimated CRCL calculation 82 ml/min; Estimated Glomerular Filt Rate > 60; Glucose 85 mg/dL (65-110); Potassium 3.2 mmol/L (3.4-5.0); Sodium 136 mmol/L (137-145)
[2021-05-16 07:20] LABS: INR 1.2
[2021-05-16] MEDS: FLUTICASONE PROP 110 MCG INHALER 12 GM (*SP) 2 PUFF INHALATION (07:48)
[2021-05-16] MEDS: UMECLIDINIUM/VILANTEROL 62.5-25 MCG ELLIPTA 1 PUFF INHALATION (07:49)
[2021-05-16] MEDS: ENOXAPARIN 40 MG/0.4 ML SYRINGE SUB-Q (08:15)
[2021-05-16] MEDS: SERTRALINE HCL 50 MG TABLET 100 MG PO (08:15)
[2021-05-16] MEDS: GABAPENTIN 300 MG CAPSULE PO ×3 (08:15→17:16)
[2021-05-16] MEDS: OPTI-GEN TAB 1 TABLET PO ×2 (08:15→17:16)
[2021-05-16] MEDS: ATORVASTATIN 20 MG TABLET PO (08:15)
[2021-05-16] MEDS: FAMOTIDINE 20 MG/2 ML VIAL IV PUSH (08:16)
[2021-05-16] MEDS: DEXAMETHASONE SOD PHOS INJ 4 MG/ML VIAL 6 MG IV PUSH (08:16)
[2021-05-16] MEDS: REMDESIVIR 100 MG/NS 250 ML 100 MG/250 ML BAG 250 MG IVPB (10:00)
--- NOTE | 2021-05-16 13:12 | PCOTNOTE ---
Attempted therapy session with patient, but patient refused all ADLs, exercises, transfers and functional activities, stating I already did my exercises and I just got back to bed. Check back tomorrow.
--- NOTE | 2021-05-16 16:14 | PCRCNOTE ---
Home oxygen evaluation done. Patient does not require supplemental oxygen at rest or with activity.
--- NOTE | 2021-05-16 20:03 | PC.NURSE ---
Ambulance was called for PU at 1536. 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 Ambulance called after 1902 to inform us they will arrive 30 minutes late. 1951 [facility] called for an update on arrival. [place] was notified they were here. 1955 called to inform us they will be 1 hour late.
--- NOTE | 2021-06-14 09:58 | PM.DS ---
DS: Admitting Diagnosis Admitting Diagnosis Chief Complaint: cough DS: Discharge Diagnosis Discharge Diagnosis (1) Pneumonia: Code(s): J18.9 - Pneumonia, unspecified organism Status: Acute Assessment and Plan: Blood and sputum cultures are pending. Continue with azithromycin and Rocephin per antibiotic stewardship. Continue with inhalers. CTA negative for PE but shows peripheral airspace opacities in the right lower lobe and right middle lobe consistent with pneumonia. Mild peripheral ground-glass opacities in left lung may be inflammation or infection with mild right hilar lymphadenopathy likely reactive noted moderate emphysema COVID positive. started on remdesivir 05/14/2021 elderly very hard of hearing, unable to provide detailed review of symptom, patient remained clinically stable has no fever, requiring 4 L of oxygen, patient is on dexamethasone and started the patient Remdesivir will continue to monitor. 05/15 2021 patient was started on dexamethasone 04/04 and Remdesivir / patient clinical symptoms are improved patient is now requiring 2 L of oxygen and there is no fever, if patient remains clinically patient will complete 5 day course of Remdisvir on 05/16 able discharge the patient tomorrow. (2) Person under investigation for COVID-19: Code(s): Z20.822 - Contact with and (suspected) exposure to COVID-19 Status: Acute Assessment and Plan: started on Decadron. COVID 19 swab positive Remains on droplet isolation. Never had COVID vaccination started on REMdesivir (3) Acute hypotension: Code(s): I95.9 - Hypotension, unspecified Status: Acute Assessment and Plan: likely from underlying infection. this is resolved with holding blood pressure medication and treatment of her underlying infection. Resume her carvedilol will stop her (4) Macular degeneration: Code(s): H35.30 - Unspecified macular degeneration Status: Chronic Assessment and Plan: The patient is on PreserVision. (5) Hyperlipidemia: Code(s): E78.5 - Hyperlipidemia, unspecified Status: Chronic Assessment and Plan: Continue with atorvastatin. (6) COPD (chronic obstructive pulmonary disease): Code(s): J44.9 - Chronic obstructive pulmonary disease, unspecified Status: Chronic Assessment and Plan: symptoms suggestive of COPD exacerbation On Decadron and bronchodilators which will be continued (7) Hypertension: Code(s): I10 - Essential (primary) hypertension Status: Chronic Assessment and Plan: blood pressure medication initially on hold due to hypotension will resume (8) Hypothyroidism: Code(s): E03.9 - Hypothyroidism, unspecified Status: Chronic Assessment and Plan: Check thyroid levels continue with levothyroxine. (9) Atrial fibrillation: Code(s): I48.91 - Unspecified atrial fibrillation Status: Acute Assessment and Plan: after reviewing the EKG this appears to be more of atrial flutter. Could be fib flutter. The patient is not on any anticoagulation. She is on aCarvedilol was discontinued Rate controlled more with slow ventricular response Will lower the dose of carvedilol to 6.25 twice a day still bradycardic and has been on hold carvedilol Not on anticoagulation Echo done on 05/11/2021 with normal ejection fraction of 65-70% no valvular abnormality seen (10) Acute and chronic respiratory failure: Code(s): J96.20 - Acute and chronic respiratory failure, unspecified whether with hypoxia or hypercapnia Status: Acute Assessment and Plan: on oxygen at home Continue oxygen supplementation and titrate to keep oxygen level more than 90% (11) DVT prophylaxis: Code(s): Z29.9 - Encounter for prophylactic measures, unspecified Status: Acute Assessment and Plan: start Lovenox for DVT prophylaxis (12) Altered mental sta
== END 2021-05-16 21:40 | DRG 177 ==
LOC: ANHED 13:36 → ANHIMU 18:33 → ANH3MEDSUR 05-16 14:16 → ANHIMU 05-17 11:40
PROVIDERS: Emergency Medicine Emergency Medical Services; Internal Medicine; Nurse Practitioner; Admitting Provider Internal Medicine; Emergency Provider Emergency Medicine; Visit Provider Family Medicine
DX: U07.1 COVID-19 (principal); J12.82 Pneumonia due to coronavirus disease 2019; J96.20 Acute and chronic respiratory failure, unspecified whether with hypoxia or hypercapnia; I48.92 Unspecified atrial flutter; J43.9 Emphysema, unspecified; H35.30 Unspecified macular degeneration; E78.5 Hyperlipidemia, unspecified; E03.9 Hypothyroidism, unspecified; I95.9 Hypotension, unspecified; I95.89 Other hypotension; I10 Essential (primary) hypertension; I48.91 Unspecified atrial fibrillation; Z99.81 Dependence on supplemental oxygen; Z87.891 Personal history of nicotine dependence; Z98.42 Cataract extraction status, left eye; Z98.41 Cataract extraction status, right eye
CPT/HCPCS: 36415; 36600; 51701; 70450; 71046; 71275; 80048; 80053; 81001; 82375; 82565; 82805; 82948; 83050; 83605; 83735; 84145; 84443; 84460; 84484; 85025; 85055; 85380; 85610; 85730; 86140; 87040; 87070; 87205; 87804; 93005; 93306; 94618; 94640; 96361; 96365; 97110; 97162; 97165; 97530; 97535; 99285; A9270; C9803; J0456; J0696; J1100; J1650; J7030; J7120; Q9967; U0003; U0005

== ENCOUNTER 2021-10-12 13:29 | Emergency (ER) | payer MEDICARE, MEDICAID, SELFPAY ==
[2021-10-12] VITALS (19 sets, daily range): BP systolic 90–149; BP diastolic 44–92; PULSE 56–109; RESP 14–30; TEMP 35.8; O2SAT 91–100
--- NOTE | ~2021-10-12 | CT_ITS ---
EXAMINATION: CT brain wo con DATE: 10/12/2021 17:34 INDICATION: Status post fall. Head injury. TECHNIQUE: Computed tomography (CT) of the head was performed without intravenous contrast. The dose- length product was 605.33 mGy-cm. Automated exposure control and iterative reconstruction technique w ere employed. COMPARISON: CT dated 05/10/2021 FINDINGS: No acute intracranial hemorrhage, infarction, mass or mass effect. No ventriculomegaly or m idline shift. Basilar cisterns are patent. There is intracranial atherosclerosis. There are scattered mild periventricular and subcortical white matter changes, most likely related to small vessel ische sukh disease (microangiopathy). IMPRESSION: 1. No acute intracranial abnormality. Reviewed, dictated and finalized at location A. HOLOGY INTERN
--- NOTE | ~2021-10-12 | XR_ITS ---
XR chest 2V 10/12/2021 16:10 Indication: Weakness. History of A. fib. Hypertension. Procedure: AP view of the chest Comparison: 05/10/2021 Findings: Heart size normal. No focal air space disease, pulmonary edema, pleural effusion or suspect ed pneumothorax. The lungs are hyperinflated which is consistent with, but not diagnostic of chronic obstructive pulmonary disease. No acute osseous abnormality. Chronic lower thoracic vertebral ruthann singh fracture. Impression: 1: No acute cardiopulmonary disease. Reviewed, dictated and finalized at location A. 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
--- NOTE | 2021-10-12 13:37 | ECG_ITS ---
Measurements Intervals [place] Rate: 113 P: MO: 0 QRS: 78 QRSD: 98 T: -87 QT: 276 QTc: 379 Interpretive Statements ATRIAL FIBRILLATION WITH RAPID VENTRICULAR RESPONSE ST-T WAVE ABNORMALITY IN ANTEROLAT/INF LEADS- CONSIDER ISCHEMIA BASELINE ARTIFACT- I, II, III, AVR, AVL, V1-V6 ABNORMAL ECG Electronically Signed On 10-12-2021 17:01:58 [employer] by Ziyad Davila D.O.
--- NOTE | 2021-10-12 17:19 | ED.GENADULT ---
HPI - General Adult General Chief complaint: Recheck/Abnormal Lab/Rx <Yesika Dennis MD - Last Filed: 10/12/21 18:05> Stated complaint: lightheadedness. <Yesika Dennis MD - Last Filed: 10/12/21 18:05> Time Seen by Provider: 10/12/21 15:46 <Yesika Dennis MD - Last Filed: 10/12/21 18:05> Source: patient, EMS and RN notes reviewed <Yesika Dennis MD - Last Filed: 10/12/21 18:05> Mode of arrival: EMS <Yesika Dennis MD - Last Filed: 10/12/21 18:05> Limitations: no limitations <Yesika Dennis MD - Last Filed: 10/12/21 18:05> History of Present Illness HPI narrative: [facility] because of frequent falls and general weakness lately today patient got up and felt wobbly with lightheadedness. No fall. Patient denies any headache, head injury, nausea, vomiting, diarrhea, constipation, chest pain, shortness of breath, back pain or neck pain. Patient is fully vaccinated for COVID-19. <Yesika Dennis MD - Last Filed: 10/12/21 18:05> Related Data Home medications: Home Medications Medication Instructions Recorded Confirmed Anoro Ellipta 1 inh INHALATION DAILY 05/10/21 05/10/21 Flovent HFA 2 puff INHALATION Q12H 05/10/21 05/10/21 PreserVision AREDS-2 1 tablet PO BID 05/10/21 05/10/21 albuterol sulfate 1 inh INHALATION Q4-6H PRN 05/10/21 05/10/21 albuterol sulfate 2.5 mg INHALATION Q4H PRN 05/10/21 05/10/21 atorvastatin 20 mg PO DAILY 05/10/21 05/10/21 carvedilol [Coreg] 12.5 mg PO BID 05/10/21 05/10/21 ergocalciferol (vitamin D2) 50,000 unit PO WEEKLY 05/10/21 05/10/21 gabapentin 300 mg PO TID 05/10/21 05/10/21 hydrocodone-acetaminophen 1 tablet PO Q6H PRN 05/10/21 05/10/21 ibuprofen 800 mg PO Q8H PRN 05/10/21 05/10/21 levothyroxine 25 mcg PO DAILY 05/10/21 05/10/21 sertraline 100 mg PO DAILY 05/10/21 05/10/21 <Yesika Dennis MD - Last Filed: 10/12/21 18:05> Allergies/adverse reactions: Allergies Allergy/AdvReac Type Severity Reaction Status Date / Time No Known Allergies Allergy Verified 05/10/21 22:07 <Yesika Dennis MD - Last Filed: 10/12/21 18:05> Review of Systems Review of Systems: CONSTITUTIONAL: Denies fever, chills, or sweats. EYES: Denies visual changes, redness, or discharge. ENT: Denies rhinorrhea, congestion, sore throat, or otalgia. CARDIOVASCULAR: Denies chest pain, palpitations, or edema. RESPIRATORY: Denies cough or dyspnea. GASTROINTESTINAL: Denies abdominal pain, nausea, vomiting, or diarrhea. GENITOURINARY: Denies dysuria or hematuria. SKIN: Denies rash or itching. MUSCULOSKELETAL: Denies back pain, joint pain, or myalgia., NEUROLOGIC: Denies headache, numbness, or tingling. Complaining of general weakness PSYCHIATRIC: Denies anxiety or depression. <Yesika Dennis MD - Last Filed: 10/12/21 18:05> [facility] Past Medical History Medical History: Medical History Bowlegged with multiple surgical procedures to correct but had complications and was not corrected COPD (chronic obstructive pulmonary disease) Depression Hyperlipidemia Hypertension Hypothyroidism Hypoxemia Macular degeneration Pain, chronic <Yesika Dennis MD - Last Filed: 10/12/21 18:05> Surgical History Surgical History: Surgical History H/O knee surgery bilateral for Varus deformity, deformity remains after surgery Hx of cataract extraction <Yesika Dennis MD - Last Filed: 10/12/21 18:05> Family History Family History: Family History Mother Heart disease Diabetes mellitus Father Heart disease <Yesika Dennis MD - Last Filed: 10/12/21 18:05> Social History Social History: Social History Social History: the patient stated that she has 3 children. She is . 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
[2021-10-12 18:58] LABS: Basophils Percent Auto 0.3 % (0.2-1.2); Eosinophils Absolute Auto 0.1 K/mm3 (0-0.3); Eosinophils Percent Auto 0.9 % (0-4.4); Hematocrit 41.3 % (37.0-47.0); Immature Granulocyte Absolute 0.01 K/mm3 (0.00-0.031); Immature Granulocyte Percent A 0.2 % (0-0.5); Lymphocytes Absolute Auto 1.11 K/mm3 (0.9-3.2); Mean Corpuscular HGB Conc 33.9 g/dl (32-36); Mean Corpuscular Hemoglobin 32.5 pg (26-34); Mean Corpuscular Volume 95.8 fl (80-100); Mean Platelet Volume 11.4 fl (7.4-10.4); Monocytes Absolute Auto 0.8 K/mm3 (0.1-0.6); Neutrophils Absolute Auto 3.9 K/mm3 (1.3-6.7); Neutrophils Percent Auto 66.6 % (45.5-73.1); Platelet Count Result 238 k/mm3 (150-375); Red Blood Count 4.31 M/mm3 (4.2-5.4); White Blood Count 5.9 K/mm3 (4.5-10.0)
[2021-10-12 19:00] LABS: INR 1.2; Prothrombin Time 14.8 Seconds (11.1-14.7)
[2021-10-12 19:01] LABS: Partial Thromboplastin Time 25.2 SECONDS (22.3-36.8)
[2021-10-12] MEDS: SODIUM CHLORIDE 0.9% IV 1,000 ML 999 ML IV CONT ×2 (19:13→20:34)
[2021-10-12 19:18] LABS: Lactic Acid Reflex 2.7 mmol/L (0.7-2.1)
[2021-10-12 19:19] LABS: Alanine Aminotransferase 18 U/L (4-35); Albumin Level 3.5 g/dL (3.5-5.1); Alkaline Phosphatase 95 U/L (38-126); Anion Gap 6 mmol/L (8-16); Aspartate Amino Transferase 27 U/L (14-36); Bilirubin,Total 0.9 mg/dL (0.2-1.3); Blood Urea Nitrogen 12 mg/dL (7-17); CRP 1.4 mg/dL (<1.0); Calcium 8.9 mg/dL (8.4-10.2); Carbon Dioxide 34 mmol/L (22-30); Chloride 92 mmol/L (98-107); Estimated CRCL calculation 73 ml/min; Estimated Glomerular Filt Rate > 60; Glucose 119 mg/dL (65-110); Sodium 132 mmol/L (137-145)
[2021-10-12 19:20] LABS: Add Urine Microscopic? YES; Appearance Urine Cloudy (Clear); Bacteria Urine Trace /hpf; Bilirubin Urine Negative (Negative); Blood Urine 1+ (Negative); Color Urine Amber (Yellow); Glucose Urine UA Negative (Negative); Ketones Urine Trace mg/dL (Negative); Leukocyte Esterase Ur Trace LEU/UL (Negative); Mucus Urine Heavy /lpf; Nitrate Urine Negative (Negative); Protein Urine 1+ mg/dL (Negative); Specific Grav Ur 1.016 (1.001-1.035); Squamous Epithelial Cell Urine Many /hpf (Few); WBC Urine 31-50 /hpf
[2021-10-12 21:48] LABS: Reflex Lactic Acid Yes or No Add Lactic
[2021-10-12 23:13] LABS: Lactic Acid 1.7 mmol/L (0.7-2.1)
--- NOTE | 2021-10-13 00:55 | PC.NURSE ---
called [facility] to request transport. ETA [id number]
--- NOTE | 2021-10-13 01:17 | PC.NURSE ---
Addendum entered by Karen Castelan 10/13/21 01:19: called [facility] to request transport. No transfer truck tonight. Original Note: called [facility] to request transport. declined called [facility] to request transport. declined
--- NOTE | 2021-10-13 03:02 | PC.NURSE ---
[facility] here.
--- NOTE | 2021-10-13 03:15 | PC.NURSE ---
[facility] called out on a 911 call and left without patient.
--- NOTE | 2021-10-13 04:52 | PC.NURSE ---
[facility] here.
[2021-10-13 05:00] VITALS: PULSE 84; RESP 18; O2SAT 95
== END 2021-10-13 05:00 ==
PROVIDERS: Emergency Provider Emergency Medicine
DX: N39.0 Urinary tract infection, site not specified (principal); J44.9 Chronic obstructive pulmonary disease, unspecified; E78.5 Hyperlipidemia, unspecified; I10 Essential (primary) hypertension; E03.9 Hypothyroidism, unspecified; H35.30 Unspecified macular degeneration; F32.A Depression, unspecified; Z98.49 Cataract extraction status, unspecified eye; Z87.891 Personal history of nicotine dependence; I48.91 Unspecified atrial fibrillation; R94.31 Abnormal electrocardiogram [ECG] [EKG]
CPT/HCPCS: 36415; 70450; 71046; 80053; 81001; 83605; 85025; 85610; 85730; 86140; 87040; 87077; 87086; 87186; 93005; 95864; 96361; 96365; 99284; J0696; J7030

== ENCOUNTER 2021-10-26 11:41 | Inpatient (IN) | payer MEDICARE, MEDICAID, SELFPAY ==
[2021-10-26] VITALS (44 sets, daily range): BP systolic 90–126; BP diastolic 34–66; PULSE 60–79; RESP 16–34; TEMP 36.7; O2SAT 91–100; BMI 19.6
--- NOTE | ~2021-10-26 | US_ITS ---
EXAMINATION: US paracentesis abd w/image DATE: 10/30/2021 13:02 INDICATION: Ascites. TECHNIQUE: The procedure and its risks, benefits, and alternatives were discussed with Fide King. Potential risks discussed included bleeding and infection. The skin was prepped and draped in sterile fashion. 1% lidocaine was used for local anesthesia. Under ultrasound guidance, a 5 Fr catheter with trochar was advanced into the ascites in the left abdomen. Fluid was aspirated. The catheter was rem feli, and a dressing was applied. There were no immediate complications. FINDINGS: Ultrasound images demonstrate ascites and the catheter within the fluid. IMPRESSION: 1. Successful ultrasound-guided paracentesis yielding 300 mL of clear, yellow fluid. Reviewed, dictated and finalized at location A. [facility]
--- NOTE | ~2021-10-26 | XR_ITS ---
EXAMINATION: XR chest 1V portable DATE: 10/26/2021 12:15 INDICATION: Cough. TECHNIQUE: A single frontal view of the chest was obtained on 2 radiographs. COMPARISON: Chest 2 views 10/12/2021, chest CT 05/10/2021 FINDINGS: The chest demonstrates clear lungs without pneumonia, pleural effusion, or pneumothorax. Th e heart size is normal. There is an old healed left rib fracture. IMPRESSION: 1. No acute cardiopulmonary disease. Reviewed, dictated and finalized at location A. D DESIGNER
--- NOTE | ~2021-10-26 | CT_ITS ---
EXAMINATION: CT brain wo con DATE: 10/26/2021 12:55 INDICATION: Head injury. TECHNIQUE: Computed tomography (CT) of the head was performed without intravenous contrast. The mA wa s adjusted according to patient size. Iterative reconstruction technique was employed. The dose-lengt h product was 605.33 mGy-cm. COMPARISON: Head CT 10/12/2021 FINDINGS: There is no intracranial hemorrhage, acute infarction, or abnormal intracranial mass lesion . There is an empty sella. There are scattered areas of low attenuation in the cerebral white matter. The ventricles are normal in size. There are likely changes of ocular lens replacement surgeries. Th e paranasal sinuses are clear. There are small bilateral mastoid effusions. IMPRESSION: 1. Stable mild nonspecific cerebral white matter disease, which likely represents chronic small vesse l ischemic disease. Reviewed, dictated and finalized at location A. L ATTENDANT IMPRESSION: 1. Stable mild nonspecific cerebral white matter disease, which likely represen ts chronic small vessel ischemic disease.
--- NOTE | ~2021-10-26 | CT_ITS ---
EXAMINATION: CT abdomen pelvis w con DATE: 10/28/2021 14:58 INDICATION: Diarrhea. TECHNIQUE: Computed tomography (CT) of the abdomen and pelvis was performed with 100 mL Omnipaque 350 intravenous contrast. Automated exposure control and iterative reconstruction technique were employe d. The dose-length product was 267.64 mGy-cm. COMPARISON: Chest CT 05/10/2021 FINDINGS: The visualized portions of the lung bases demonstrate severe emphysema. There is mild atele ctasis bilaterally. There are pleural-based nodules in left lung lower lobe. There are trace pleural effusions. There is size is normal. No pericardial effusion. The liver demonstrates transient hepatic attenuation difference. There are multiple low-attenuation masses in the liver measuring up to 1.6 c m. The gallbladder is decompressed. There is a hypodense infarct in superior spleen. There is a 7.2 x 5.3 cm mass in the pancreas that encases the celiac axis, superior mesenteric artery. There is chron ic total occlusion of portosplenic confluence and splenic vein. There is intraluminal thrombus in sup erior mesenteric mesenteric vein. There is a calcified fibroid in the uterus. There is an intrauterin e device in expected position. There are scattered diverticula in the colon. The appendix is normal. There are no dilated loops of bowel. There is a moderate volume of ascites. There is nodular peritone al thickening, consistent with carcinomatosis. Body wall edema is noted. There are old healed left ri b fractures. There is severe lumbar spondylosis. There are multiple chronic compression fractures in the spine. IMPRESSION: 1. 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 2. Liver masses and pleural-based left lung nodules, consistent with metastatic disease. 3. Moderate volume of ascites with peritoneal carcinomatosis. Ultrasound-guided paracentesis is recom mended for diagnosis. 4. 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 Sm all splenic infarct. Reviewed, dictated and finalized at location A. UCT SAFETY COMPLIANCE LEADER IMPRESSION: 1. 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 2. Liver masses and pleural-based left lung nodules, consistent with metastatic disease. 3. Moderate volume of ascites with peritoneal carcinomatosis. Ultrasound-guided paracentesis is recommended for diagnosis. 4. 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 Small splenic infarct.
--- NOTE | ~2021-10-26 | US_ITS ---
EXAMINATION: US right upper quadrant DATE: 11/02/2021 08:35 INDICATION: Abnormal liver function tests. TECHNIQUE: Multiple grayscale and Doppler ultrasound images of the abdomen were obtained. COMPARISON: CT abdomen and pelvis 10/28/2021 FINDINGS: There is an ill-defined pancreatic mass. The liver demonstrates heterogeneous echogenicity. There is normal flow in main portal vein. The gallbladder is contracted and contains sludge. No gall stones. There was no sonographic Brown sign. The common duct is normal and measures 2 mm. There is p erihepatic ascites. IMPRESSION: 1. Ill-defined pancreatic mass better seen by CT, consistent with primary adenocarcinoma. 2. Heterogeneous liver, consistent with ill-defined metastatic disease. 3. Contracted gallbladder with sludge. No evidence of acute cholecystitis. 4. Perihepatic ascites. Reviewed, dictated and finalized at location A. ESSING TECHNICIAN IMPRESSION: 1. Ill-defined pancreatic mass better seen by CT, consistent with primary adeno carcinoma. 2. Heterogeneous liver, consistent with ill-defined metastatic disease. 3. Contracted gallbladder with sludge. No evidence of acute cholecystitis. 4. Perihepatic ascites.
--- NOTE | ~2021-10-26 | XR_ITS ---
EXAMINATION: XR chest 1V portable DATE: 11/01/2021 14:19 INDICATION: Shortness of breath. TECHNIQUE: A single frontal view of the chest was obtained. COMPARISON: Chest single view 10/26/2021, CT abdomen and pelvis 10/28/2021 FINDINGS: There are mild airspace opacities in right midlung zone and at the lung bases. No pleural e ffusion or pneumothorax. The heart size is normal. Skinfolds overlie the chest bilaterally. IMPRESSION: 1. Mild airspace opacities in right midlung zone and at the lung bases, consistent with atelectasis v ersus pneumonia. Reviewed, dictated and finalized at location A. ED LEVER OPERATOR IMPRESSION: 1. Mild airspace opacities in right midlung zone and at the lung bases, consist ent with atelectasis versus pneumonia.
--- NOTE | 2021-10-26 11:50 | ECG_ITS ---
Measurements Intervals [place] Rate: 62 P: 84 MS: 167 QRS: 71 QRSD: 97 T: -50 QT: 415 QTc: 423 Interpretive Statements SINUS RHYTHM EARLY PRECORDIAL R/S TRANSITION ST-T WAVE ABNORMALITY IN ANTEROLAT/INF LEADS- CONSIDER ISCHEMIA ABNORMAL ECG Electronically Signed On 10-26-2021 13:34:18 [employer]ARD [employer] by Ziyad Davila D.O.
[2021-10-26 12:31] LABS: Basophils Percent Auto 0.3 % (0.2-1.2); Eosinophils Percent Auto 0.1 % (0-4.4); Hematocrit 32.2 % (37.0-47.0); Immature Granulocyte Absolute 0.02 K/mm3 (0.00-0.031); Immature Granulocyte Percent A 0.3 % (0-0.5); Lymphocytes Absolute Auto 0.68 K/mm3 (0.9-3.2); Lymphocytes Percent Auto 9.5 % (18.3-44.2); Mean Corpuscular HGB Conc 34.2 g/dl (32-36); Mean Corpuscular Hemoglobin 32.4 pg (26-34); Mean Platelet Volume 11.4 fl (7.4-10.4); Monocytes Absolute Auto 0.7 K/mm3 (0.1-0.6); Monocytes Percent Auto 9.7 % (2.6-8.5); Neutrophils Absolute Auto 5.7 K/mm3 (1.3-6.7); Neutrophils Percent Auto 80.1 % (45.5-73.1); Platelet Count Result 172 k/mm3 (150-375); Red Blood Count 3.39 M/mm3 (4.2-5.4); Red Cell Distribution Width 15.9 % (11.5-14.5); White Blood Count 7.2 K/mm3 (4.5-10.0)
[2021-10-26 12:41] LABS: Alanine Aminotransferase 20 U/L (4-35); Albumin Level 2.7 g/dL (3.5-5.1); Alkaline Phosphatase 143 U/L (38-126); Anion Gap 5 mmol/L (8-16); Aspartate Amino Transferase 31 U/L (14-36); Blood Urea Nitrogen 11 mg/dL (7-17); Calcium 8.2 mg/dL (8.4-10.2); Carbon Dioxide 33 mmol/L (22-30); Chloride 97 mmol/L (98-107); Estimated CRCL calculation 79 ml/min; Estimated Glomerular Filt Rate > 60; Glucose 118 mg/dL (65-110); Potassium 3.1 mmol/L (3.4-5.0); Sodium 135 mmol/L (137-145)
[2021-10-26] MEDS: MECLIZINE HCL 25 MG TABLET PO (12:47)
--- NOTE | 2021-10-26 13:35 | ED.GENADULT ---
HPI - General Adult General Chief complaint: Shortness of Breath/Dyspnea Stated complaint: unsteady while walking Time Seen by Provider: 10/26/21 12:00 History of Present Illness HPI narrative: Patient is an 81-year-old female who presents to the ER with weakness and dizziness. Patient reports she awoke this morning was too weak to get up and walk. She fell and hit her head on the ground. She has dizziness since worsened by moving her head. No nausea or sweats. Denies chest pain. Patient chronically O2 dependent. No fevers or chills or sweats. No new cough. Related Data Home Medications Medication Instructions Recorded Confirmed Anoro Ellipta 1 inh INHALATION DAILY 05/10/21 10/26/21 albuterol sulfate 1 inh INHALATION Q4H PRN 05/10/21 05/10/21 carvedilol [Coreg] 12.5 mg PO QNOON 05/10/21 10/26/21 gabapentin 300 mg PO DAILY 05/10/21 10/26/21 hydrocodone-acetaminophen 1 tablet PO Q6H PRN 05/10/21 10/26/21 ibuprofen 800 mg PO Q8H PRN 05/10/21 10/26/21 levothyroxine 25 mcg PO DAILY 05/10/21 10/26/21 sertraline 100 mg PO DAILY 05/10/21 10/26/21 cholecalciferol (vitamin D3) 125 mcg PO DAILY 10/26/21 10/26/21 [Vitamin D3] ipratropium-albuterol 3 ml INHALATION TID PRN 10/26/21 10/26/21 Allergies Allergy/AdvReac Type Severity Reaction Status Date / Time No Known Allergies Allergy Verified 10/26/21 11:52 Review of Systems Review of Systems: All systems reviewed & are unremarkable except as noted in HPI and below Constitutional: Constitutional: Denies chills, Denies fever(s) and Reports weakness ENT: Reports dizziness, Denies nasal congestion and Denies sore throat Cardiovascular: Cardiovascular: Denies chest pain, Denies rapid heart rate and Denies radiating jaw, neck or arm pain Respiratory: Respiratory: Denies cough, Reports dyspnea (Chronic) and Denies wheezing Gastrointestinal: Gastrointestinal: Denies abdominal pain, Denies nausea and Denies vomiting Neurologic: Denies syncope, Denies focal weakness and Denies numbness PMF Past Medical History Medical History Bowlegged with multiple surgical procedures to correct but had complications and was not corrected COPD (chronic obstructive pulmonary disease) Depression Hyperlipidemia Hypertension Hypothyroidism Hypoxemia Macular degeneration Pain, chronic Surgical History Surgical History H/O knee surgery bilateral for Varus deformity, deformity remains after surgery Hx of cataract extraction Family History Family History Mother Heart disease Diabetes mellitus Father Heart disease Social History Social History Social History: the patient stated that she has 3 children. She is . 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 Patient stated that her children are the durable power bankruptcy attorney for healthcare. She is listed as a full code. The patient stated that she quit smoking many years ago. She denies any alcohol. Smoking status: Never smoker Alcohol intake: former Substance use: former Gender identity (if verbalized by the patient): Female Spiritual care concerns: No Exam Narrative: GENERAL: Chronically ill-appearing, well-nourished, and in no acute distress. HEAD: Normocephalic, atraumatic. EYES: PERRL and EOMI. ENT: Mucous membranes moist. CHEST: Clear to auscultation. No respiratory distress. HEART: Regular rate and rhythm. Normal peripheral pulses. ABDOMEN: Soft, nontender, nondistended. EXTREMITIES: Normal range of motion. No edema. SKIN: Warm, dry, no rash. NEURO: Alert and oriented x3. PSYCH: Normal mood and affect. Course Course Emergency Course: Patient informed of results. IV fluids ordered. Accepted by hospitalist. Vital Signs Vital signs: Vital Signs Temperature 98.1 F 10/26
[2021-10-26 16:50] LABS: Add Urine Microscopic? YES; Appearance Urine Cloudy (Clear); Bacteria Urine 1+ /hpf; Bilirubin Urine Negative (Negative); Blood Urine Negative (Negative); Color Urine Yellow (Yellow); Glucose Urine UA Negative (Negative); Ketones Urine Trace mg/dL (Negative); Leukocyte Esterase Ur 2+ LEU/UL (Negative); Mucus Urine Rare /lpf; Nitrate Urine Negative (Negative); Protein Urine 1+ mg/dL (Negative); Specific Grav Ur 1.017 (1.001-1.035); Squamous Epithelial Cell Urine Few /hpf (Few); WBC Urine >75 /hpf
--- NOTE | 2021-10-26 22:51 | PC.NURSE ---
This patient, Cherelle Lynn, was admitted to [facility] S[facility] Room 322-02. Patient/family oriented to hospital policies and general routines including ID bracelet, bed and alarms, visiting hours, pain management, procedures, bathroom and other care routines, personal items, smoking policy, room service/diet, and visiting hours. Information on how to activate the Rapid Response Team has been discussed. Patient/Family are encouraged to report perceived risks to care and to ask questions if they do not understand what they are told or what they should do.
[2021-10-27] VITALS (9 sets, daily range): BP systolic 90–117; BP diastolic 36–63; PULSE 51–78; RESP 16–20; TEMP 36.5–37; O2SAT 97–100
--- NOTE | 2021-10-27 06:45 | PM.IMHP ---
H&P: HPI History of Present Illness Date/Time: 10/27/21 0645 Chief Complaint: weakness Narrative: patient is an 81-year-old female with a past medical history of COPD, hyperlipidemia, hypertension, who presented the ED for weakness and fall. The patient is very hard of hearing and very withdrawn however patient stated that she was very dizzy and weak and that when she tries to get up she does falls the ground. She has not been able to walk. She did fall and hit her head which is on the left side she states that she has little pain there. Patient is eating. She denies chest pain, shortness of breath, abdominal pain, nausea, vomiting, diarrhea, constipation, urinary dysfunction. Patient does wear 3 L nasal cannula at home and is currently on 3 L nasal cannula. Patient denies any respiratory symptoms including cough, congestion, or shortness of breath. it looks as if the patient was just here recently for COVID-19. Patient then also was here 10/12 and was found to have a UTI of Enterococcus species. Patient was sent home with Keflex at that time Which susceptibilities do not support Keflex. With patient's hearing issue I do not know the patient is not really having urinary symptoms. UA is look pretty similar from 10/12/2021 to today. Will start patient on vancomycin and keep the ceftriaxone at this time. Patient is being admitted to the hospitalist service under observation at this time Review of Systems Review of Systems: All systems reviewed & are unremarkable except as noted in HPI and below PMFSH Past Medical History Medical History Bowlegged with multiple surgical procedures to correct but had complications and was not corrected COPD (chronic obstructive pulmonary disease) Depression Hyperlipidemia Hypertension Hypothyroidism Hypoxemia Macular degeneration Pain, chronic Surgical History Surgical History H/O knee surgery bilateral for Varus deformity, deformity remains after surgery Hx of cataract extraction Family History Family History Mother Heart disease Diabetes mellitus Father Heart disease Social History Social History (Updated 10/27/21 @ 10:54 by NOHELIA Mace) Social History: the patient stated that she has 3 children. She is . She worked in a [employer] in [place] that made [employer]. Patient stated that her children are the durable power employment law attorney for healthcare. She is listed as a full code. The patient stated that she quit smoking about 2 years ago and was up to about 3ppd prior to quitting. She denies any alcohol. Patient does not was to be resuscitated however, her mental status is not dependable will keep a full code for now. Smoking status: Former smoker Tobacco type: cigarettes Additional smoking assessment comments: reports quit 2 years ago, no length of time noted, she does not know Alcohol intake: former Substance use: former Living arrangements: alone Occupation/Education: retired Additional occupation/education comments: [employer] Gender identity (if verbalized by the patient): Female Sexual Orientation (if Verbalized by the Patient): Straight or Heterosexual Spiritual care concerns: No Agree to blood products: Yes Meds Home Medications and Allergies Home Medications Medication Instructions Recorded Confirmed Type Anoro Ellipta 1 inh INHALATION DAILY 05/10/21 10/26/21 History albuterol sulfate 1 inh INHALATION Q4H PRN 05/10/21 10/27/21 History carvedilol [Coreg] 12.5 mg PO QNOON 05/10/21 10/26/21 History gabapentin 300 mg PO DAILY 05/10/21 10/26/21 History hydrocodone-acetaminophen 1 tablet PO Q6H PRN 05/10/21 10/26/21 History ibuprofen 800 mg PO Q8H PRN 05/10/21 10/26/21 History levothyroxine 25 mcg PO DAILY 05/10/21 10/26/21 History sertraline 100 mg PO JAMAR
[2021-10-27 07:57] LABS: Mean Corpuscular HGB Conc 34.4 g/dl (32-36); Mean Corpuscular Hemoglobin 32.6 pg (26-34); Platelet Count Result 153 k/mm3 (150-375); Red Blood Count 3.37 M/mm3 (4.2-5.4); Red Cell Distribution Width 16.3 % (11.5-14.5); White Blood Count 5.4 K/mm3 (4.5-10.0)
[2021-10-27 08:11] LABS: Anion Gap 6 mmol/L (8-16); Blood Urea Nitrogen 9 mg/dL (7-17); Carbon Dioxide 32 mmol/L (22-30); Chloride 98 mmol/L (98-107); Estimated CRCL calculation 101 ml/min; Estimated Glomerular Filt Rate > 60; Glucose 90 mg/dL (65-110); Potassium 2.2 mmol/L (3.4-5.0); Sodium 136 mmol/L (137-145)
[2021-10-27] MEDS: CHOLECALCIFEROL 1,000 UNITS TABLET 5000 UNITS PO (08:40)
[2021-10-27] MEDS: SERTRALINE HCL 50 MG TABLET 100 MG PO (08:41)
[2021-10-27] MEDS: GABAPENTIN 300 MG CAPSULE PO (08:41)
[2021-10-27] MEDS: LEVOTHYROXINE SODIUM 25 MCG TABLET PO (08:41)
[2021-10-27] MEDS: UMECLIDINIUM/VILANTEROL 62.5-25 MCG ELLIPTA 1 PUFF INHALATION (08:43)
[2021-10-27] MEDS: POTASSIUM CHLORIDE INJ 40 MEQ in SODIUM CHLORIDE 0.9% IV 500 ML 130 MEQ IVPB (10:40)
[2021-10-27] MEDS: POTASSIUM CHLORIDE 20 MEQ PACKET (FOR LIQUID) 40 MEQ PO (10:40)
[2021-10-27 11:13] LABS: Magnesium 1.7 mg/dL (1.6-2.3)
[2021-10-27] MEDS: carvediloL 12.5 MG TABLET PO (12:25)
--- NOTE | 2021-10-27 15:47 | PCOTNOTE ---
OT evaluation attempted, per RN pt on hold due to orthostatic limitation. Will follow up with pt's status tomorrow.
[2021-10-28] VITALS (13 sets, daily range): BP systolic 97–129; BP diastolic 50–62; PULSE 53–60; RESP 14–18; TEMP 36–36.7; O2SAT 95–100; BMI 19.6
[2021-10-28] MEDS: LEVOTHYROXINE SODIUM 25 MCG TABLET PO (06:10)
[2021-10-28] MEDS: GABAPENTIN 300 MG CAPSULE PO (09:10)
[2021-10-28] MEDS: ENOXAPARIN 40 MG/0.4 ML SYRINGE SUB-Q (09:10)
[2021-10-28] MEDS: SERTRALINE HCL 50 MG TABLET 100 MG PO (09:10)
[2021-10-28] MEDS: CHOLECALCIFEROL 1,000 UNITS TABLET 5000 UNITS PO (09:10)
[2021-10-28 09:19] LABS: Basophils Percent Auto 0.6 % (0.2-1.2); Eosinophils Absolute Auto 0.3 K/mm3 (0-0.3); Eosinophils Percent Auto 3.8 % (0-4.4); Hematocrit 34.1 % (37.0-47.0); Hemoglobin 11.5 g/dL (12.0-15.0); Immature Granulocyte Absolute 0.03 K/mm3 (0.00-0.031); Immature Granulocyte Percent A 0.5 % (0-0.5); Lymphocytes Percent Auto 13.6 % (18.3-44.2); Mean Corpuscular HGB Conc 33.7 g/dl (32-36); Mean Corpuscular Hemoglobin 32.5 pg (26-34); Mean Corpuscular Volume 96.3 fl (80-100); Mean Platelet Volume 12.6 fl (7.4-10.4); Monocytes Absolute Auto 0.7 K/mm3 (0.1-0.6); Monocytes Percent Auto 10.7 % (2.6-8.5); Neutrophils Absolute Auto 4.7 K/mm3 (1.3-6.7); Neutrophils Percent Auto 70.8 % (45.5-73.1); Platelet Count Result 171 k/mm3 (150-375); Red Blood Count 3.54 M/mm3 (4.2-5.4); Red Cell Distribution Width 16.3 % (11.5-14.5); White Blood Count 6.6 K/mm3 (4.5-10.0)
[2021-10-28 09:34] LABS: Alanine Aminotransferase 18 U/L (4-35); Albumin Level 2.6 g/dL (3.5-5.1); Alkaline Phosphatase 149 U/L (38-126); Anion Gap 5 mmol/L (8-16); Aspartate Amino Transferase 29 U/L (14-36); Bilirubin,Total 0.7 mg/dL (0.2-1.3); Blood Urea Nitrogen 8 mg/dL (7-17); Calcium 8.2 mg/dL (8.4-10.2); Carbon Dioxide 29 mmol/L (22-30); Chloride 98 mmol/L (98-107); Estimated CRCL calculation 79 ml/min; Estimated Glomerular Filt Rate > 60; Glucose 100 mg/dL (65-110); Magnesium 1.7 mg/dL (1.6-2.3); Potassium 2.9 mmol/L (3.4-5.0); Sodium 132 mmol/L (137-145)
[2021-10-28] MEDS: UMECLIDINIUM/VILANTEROL 62.5-25 MCG ELLIPTA 1 PUFF INHALATION (10:03)
--- NOTE | 2021-10-28 11:15 | P.PNIM_ITS ---
Progress Note: A&P Assessment and Plan (1) Metabolic encephalopathy: Code(s): G93.41 - Metabolic encephalopathy Status: Acute Assessment and Plan: * Seems to be acutely confused, but seems to be resolving * Probably related to possible uti * Head ct Stable mild nonspecific cerebral white matter disease, which likely represents chronic small vessel ischemic disease. * Antibiotics started * monitor symptoms (2) Weakness: Code(s): R53.1 - Weakness Status: Acute Assessment and Plan: * Current complaint of weakness * Probably from possible UTI * UA indicates possible UTI (3) COPD (chronic obstructive pulmonary disease): Code(s): J44.9 - Chronic obstructive pulmonary disease, unspecified Status: Chronic Assessment and Plan: * Continue home inhalers * Seems to be stable at this time * No wheeze, sputum changes, or shortness of breath noted * Chest xray No acute cardiopulmonary disease. * Continue to trend SPO2 (4) Chronic respiratory failure: Code(s): J96.10 - Chronic respiratory failure, unspecified whether with hypoxia or hypercapnia Status: Acute Assessment and Plan: * On 3LNC at home * Currently on 3LNC * continue to monitor * Titrate oxygen to maintain saturation above 90% (5) Hypothyroidism: Code(s): E03.9 - Hypothyroidism, unspecified Status: Chronic Assessment and Plan: * Continue home levothyroxine * Check TSH in the am (6) Hypokalemia: Code(s): E87.6 - Hypokalemia Status: Acute Assessment and Plan: * K is 2.9 * Replace with 60PO and 40IV * Trend labs * Mag pending * Labs in the am (7) Abnormal urinalysis: Code(s): R82.90 - Unspecified abnormal findings in urine Status: Acute Assessment and Plan: * Ua suspicious for UTI * Continue ceftriaxone * 10/12/21 enterococcus species identified * Was treated with Keflex which is not significant for that bacteria * Repeat urine culture found enterococcus species * Started Vancomycin * Trend symptoms (8) Dizziness: Code(s): R42 - Dizziness and giddiness Status: Acute Assessment and Plan: * Reports dizziness * Head ct negative for bleed * Denies visual or hearing changes * Could be related to underlying infection * Add meclizine (9) Fall: Code(s): W19.XXXA - Unspecified fall, initial encounter Status: Acute Assessment and Plan: * Reports fall, weakness, and inability to walk * PT/OT * Could be from possible UTI (10) Diarrhea: Code(s): R19.7 - Diarrhea, unspecified Status: Acute Assessment and Plan: * New onset * Could be from the antibiotics * Abdominal CT ordered * Could be C. Diff * Started on oral vanco Time Spent With Patient Time with patient: 25 - 35 minutes Subjective Date/time seen: 10/28/21 1115 Interval history: Date/Time: 10/27/21 0697 Narrative: patient is an 81-year-old female with a past medical history of COPD, hyperlipidemia, hypertension, who presented the ED for weakness and fall. The patient is very hard of hearing and very withdrawn however patient stated that she was very dizzy and weak and that when she tries to get up she does falls the ground.
--- NOTE | 2021-10-28 11:15 | PM.IMPN ---
Progress Note: A&P Assessment and Plan (1) Metabolic encephalopathy: Code(s): G93.41 - Metabolic encephalopathy Status: Acute Assessment and Plan: Seems to be acutely confused, but seems to be resolving Probably related to possible uti Head ct Stable mild nonspecific cerebral white matter disease, which likely represents chronic small vessel ischemic disease. Antibiotics started monitor symptoms (2) Weakness: Code(s): R53.1 - Weakness Status: Acute Assessment and Plan: Current complaint of weakness Probably from possible UTI UA indicates possible UTI (3) COPD (chronic obstructive pulmonary disease): Code(s): J44.9 - Chronic obstructive pulmonary disease, unspecified Status: Chronic Assessment and Plan: Continue home inhalers Seems to be stable at this time No wheeze, sputum changes, or shortness of breath noted Chest xray No acute cardiopulmonary disease. Continue to trend SPO2 (4) Chronic respiratory failure: Code(s): J96.10 - Chronic respiratory failure, unspecified whether with hypoxia or hypercapnia Status: Acute Assessment and Plan: On 3LNC at home Currently on 3LNC continue to monitor Titrate oxygen to maintain saturation above 90% (5) Hypothyroidism: Code(s): E03.9 - Hypothyroidism, unspecified Status: Chronic Assessment and Plan: Continue home levothyroxine Check TSH in the am (6) Hypokalemia: Code(s): E87.6 - Hypokalemia Status: Acute Assessment and Plan: K is 2.9 Replace with 60PO and 40IV Trend labs Mag pending Labs in the am (7) Abnormal urinalysis: Code(s): R82.90 - Unspecified abnormal findings in urine Status: Acute Assessment and Plan: Ua suspicious for UTI Continue ceftriaxone 10/12/21 enterococcus species identified Was treated with Keflex which is not significant for that bacteria Repeat urine culture found enterococcus species Started Vancomycin Trend symptoms (8) Dizziness: Code(s): R42 - Dizziness and giddiness Status: Acute Assessment and Plan: Reports dizziness Head ct negative for bleed Denies visual or hearing changes Could be related to underlying infection Add meclizine (9) Fall: Code(s): W19.XXXA - Unspecified fall, initial encounter Status: Acute Assessment and Plan: Reports fall, weakness, and inability to walk PT/OT Could be from possible UTI (10) Diarrhea: Code(s): R19.7 - Diarrhea, unspecified Status: Acute Assessment and Plan: New onset Could be from the antibiotics Abdominal CT ordered Could be C. Diff Started on oral vanco Time Spent With Patient Time with patient: 25 - 35 minutes Subjective Date/time seen: 10/28/21 1115 Interval history: Date/Time: 10/27/21 5945 Narrative: patient is an 81-year-old female with a past medical history of COPD, hyperlipidemia, hypertension, who presented the ED for weakness and fall. The patient is very hard of hearing and very withdrawn however patient stated that she was very dizzy and weak and that when she tries to get up she does falls the ground. She has not been able to walk. She did fall and hit her head which is on the left side she states that she has little pain there. Patient is eating. She denies chest pain, shortness of breath, abdominal pain, nausea, vomiting, diarrhea, constipation, urinary dysfunction. Patient does wear 3 L nasal cannula at home and is currently on 3 L nasal cannula. Patient denies any respiratory symptoms including cough, congestion, or shortness of breath. it looks as if the patient was just here recently for COVID-19. Patient then also was here 10/12 and was found to have a UTI of Enterococcus species. Patient was sent home with Keflex at that time Which torres
[2021-10-28] MEDS: MAGNESIUM SULF 2 GM/WATER 50ML 2 GM/50 ML BAG IVPB (15:16)
[2021-10-28] MEDS: POTASSIUM CHLORIDE INJ 40 MEQ in SODIUM CHLORIDE 0.9% IV 500 ML 100 MEQ IVPB (15:16)
[2021-10-28] MEDS: POTASSIUM CHLORIDE 20 MEQ TABLET 60 MEQ PO (15:17)
[2021-10-28] MEDS: VANCOMYCIN ORAL 125 MG/2.5 ML SYRUP PO ×2 (16:59→23:04)
[2021-10-28 23:36] LABS: Vancomycin Trough 13.7 ug/mL (10.0-20.0)
[2021-10-29] VITALS (11 sets, daily range): BP systolic 89–136; BP diastolic 40–67; PULSE 49–87; RESP 16–18; TEMP 36.5–36.8; O2SAT 97–100
[2021-10-29 00:20] LABS: Potassium 3.9 mmol/L (3.4-5.0)
[2021-10-29] MEDS: VANCOMYCIN ORAL 125 MG/2.5 ML SYRUP PO ×3 (05:25→17:11)
[2021-10-29] MEDS: LEVOTHYROXINE SODIUM 25 MCG TABLET PO (05:25)
[2021-10-29 07:04] LABS: Alanine Aminotransferase 20 U/L (4-35); Albumin Level 2.9 g/dL (3.5-5.1); Alkaline Phosphatase 171 U/L (38-126); Anion Gap 5 mmol/L (8-16); Aspartate Amino Transferase 28 U/L (14-36); Bilirubin,Total 0.5 mg/dL (0.2-1.3); Blood Urea Nitrogen 7 mg/dL (7-17); Calcium 8.4 mg/dL (8.4-10.2); Carbon Dioxide 28 mmol/L (22-30); Chloride 98 mmol/L (98-107); Estimated CRCL calculation 79 ml/min; Estimated Glomerular Filt Rate > 60; Glucose 115 mg/dL (65-110); Potassium 3.7 mmol/L (3.4-5.0); Sodium 131 mmol/L (137-145)
[2021-10-29 07:26] LABS: Basophils Percent Auto 0.5 % (0.2-1.2); Eosinophils Absolute Auto 0.3 K/mm3 (0-0.3); Hematocrit 35.9 % (37.0-47.0); Immature Granulocyte Absolute 0.03 K/mm3 (0.00-0.031); Immature Granulocyte Percent A 0.5 % (0-0.5); Lymphocytes Absolute Auto 1.05 K/mm3 (0.9-3.2); Lymphocytes Percent Auto 16.3 % (18.3-44.2); Mean Corpuscular HGB Conc 33.4 g/dl (32-36); Mean Corpuscular Hemoglobin 32.5 pg (26-34); Mean Corpuscular Volume 97.3 fl (80-100); Mean Platelet Volume 12.5 fl (7.4-10.4); Monocytes Absolute Auto 0.8 K/mm3 (0.1-0.6); Monocytes Percent Auto 11.6 % (2.6-8.5); Neutrophils Absolute Auto 4.3 K/mm3 (1.3-6.7); Neutrophils Percent Auto 67.1 % (45.5-73.1); Platelet Count Result 188 k/mm3 (150-375); Red Blood Count 3.69 M/mm3 (4.2-5.4); Red Cell Distribution Width 16.5 % (11.5-14.5); White Blood Count 6.4 K/mm3 (4.5-10.0)
[2021-10-29] MEDS: CHOLECALCIFEROL 1,000 UNITS TABLET 5000 UNITS PO (09:35)
[2021-10-29] MEDS: SERTRALINE HCL 50 MG TABLET 100 MG PO (09:39)
[2021-10-29] MEDS: ENOXAPARIN 40 MG/0.4 ML SYRINGE SUB-Q (09:39)
[2021-10-29] MEDS: GABAPENTIN 300 MG CAPSULE PO (09:39)
--- NOTE | 2021-10-29 11:00 | PM.IMPN ---
Progress Note: A&P Assessment and Plan (1) Metabolic encephalopathy: Code(s): G93.41 - Metabolic encephalopathy Status: Acute Assessment and Plan: Seems to be acutely confused, but seems to be resolving Probably related to possible uti Head ct Stable mild nonspecific cerebral white matter disease, which likely represents chronic small vessel ischemic disease. Antibiotics started monitor symptoms (2) Weakness: Code(s): R53.1 - Weakness Status: Acute Assessment and Plan: Current complaint of weakness Probably from possible UTI UA indicates possible UTI Seems to be getting better She is also seeing PT/OT (3) COPD (chronic obstructive pulmonary disease): Code(s): J44.9 - Chronic obstructive pulmonary disease, unspecified Status: Chronic Assessment and Plan: Continue home inhalers Seems to be stable at this time No wheeze, sputum changes, or shortness of breath noted Chest xray No acute cardiopulmonary disease. Continue to trend SPO2 (4) Chronic respiratory failure: Code(s): J96.10 - Chronic respiratory failure, unspecified whether with hypoxia or hypercapnia Status: Acute Assessment and Plan: On 3LNC at home Currently on 3LNC continue to monitor Titrate oxygen to maintain saturation above 90% (5) Hypothyroidism: Code(s): E03.9 - Hypothyroidism, unspecified Status: Chronic Assessment and Plan: Continue home levothyroxine Check TSH 3.590 (6) Hypokalemia: Code(s): E87.6 - Hypokalemia Status: Acute Assessment and Plan: K is 3.7 Trend labs Mag pending Labs in the am (7) Abnormal urinalysis: Code(s): R82.90 - Unspecified abnormal findings in urine Status: Acute Assessment and Plan: Ua suspicious for UTI Continue ceftriaxone 10/12/21 enterococcus species identified Was treated with Keflex which is not significant for that bacteria Repeat urine culture found enterococcus species Vancomycin day 3 Trend symptoms (8) Dizziness: Code(s): R42 - Dizziness and giddiness Status: Acute Assessment and Plan: Reports dizziness Head ct negative for bleed Denies visual or hearing changes Could be related to underlying infection Add meclizine (9) Fall: Code(s): W19.XXXA - Unspecified fall, initial encounter Status: Acute Assessment and Plan: Reports fall, weakness, and inability to walk PT/OT Could be from possible UTI (10) Diarrhea: Code(s): R19.7 - Diarrhea, unspecified Status: Acute Assessment and Plan: New onset Could be from the antibiotics Abdominal CT ordered Could be C. Diff Started on oral vanco (11) Adenocarcinoma: Code(s): C80.1 - Malignant (primary) neoplasm, unspecified Status: Acute Assessment and Plan: Abd/Pel CT shows a pancreatic mass consistent with adenocarcinoma, Liver masses and pleural-based left lung nodules, consistent with metastatic disease. Talked to Dr. Solis stated that the patient is unlikely a candidate for treatment with all of her other comorbidities Diagnostic paracentesis has been ordered, per son's request (12) Abdominal ascites: Code(s): R18.8 - Other ascites Status: Acute Assessment and Plan: Found on the CT Paracentesis has been ordered Diagnostics also ordered (13) Pancreatic mass: Code(s): K86.89 - Other specified diseases of pancreas Status: Acute Assessment and Plan: Found on the CT 7.2x5.3cm pancreatic mass, consistent with primary adenocarcinoma Work up in process Time Spent With Patient Time with patient: 25 - 35 minutes Subjective Date/time seen: 10/29/21 1100 Interval history: Date/Time: 10/27/21 0645 Narrative: patient is an 81-year-old female wit
--- NOTE | 2021-10-29 11:00 | P.PNIM_ITS ---
Progress Note: A&P Assessment and Plan (1) Metabolic encephalopathy: Code(s): G93.41 - Metabolic encephalopathy Status: Acute Assessment and Plan: * Seems to be acutely confused, but seems to be resolving * Probably related to possible uti * Head ct Stable mild nonspecific cerebral white matter disease, which likely represents chronic small vessel ischemic disease. * Antibiotics started * monitor symptoms (2) Weakness: Code(s): R53.1 - Weakness Status: Acute Assessment and Plan: * Current complaint of weakness * Probably from possible UTI * UA indicates possible UTI Seems to be getting better She is also seeing PT/OT (3) COPD (chronic obstructive pulmonary disease): Code(s): J44.9 - Chronic obstructive pulmonary disease, unspecified Status: Chronic Assessment and Plan: * Continue home inhalers * Seems to be stable at this time * No wheeze, sputum changes, or shortness of breath noted * Chest xray No acute cardiopulmonary disease. * Continue to trend SPO2 (4) Chronic respiratory failure: Code(s): J96.10 - Chronic respiratory failure, unspecified whether with hypoxia or hypercapnia Status: Acute Assessment and Plan: * On 3LNC at home * Currently on 3LNC * continue to monitor * Titrate oxygen to maintain saturation above 90% (5) Hypothyroidism: Code(s): E03.9 - Hypothyroidism, unspecified Status: Chronic Assessment and Plan: * Continue home levothyroxine * Check TSH 3.590 (6) Hypokalemia: Code(s): E87.6 - Hypokalemia Status: Acute Assessment and Plan: * K is 3.7 * Trend labs * Mag pending * Labs in the am (7) Abnormal urinalysis: Code(s): R82.90 - Unspecified abnormal findings in urine Status: Acute Assessment and Plan: * Ua suspicious for UTI * Continue ceftriaxone * 10/12/21 enterococcus species identified * Was treated with Keflex which is not significant for that bacteria * Repeat urine culture found enterococcus species * Vancomycin day 3 * Trend symptoms (8) Dizziness: Code(s): R42 - Dizziness and giddiness Status: Acute Assessment and Plan: * Reports dizziness * Head ct negative for bleed * Denies visual or hearing changes * Could be related to underlying infection * Add meclizine (9) Fall: Code(s): W19.XXXA - Unspecified fall, initial encounter Status: Acute Assessment and Plan: * Reports fall, weakness, and inability to walk * PT/OT * Could be from possible UTI (10) Diarrhea: Code(s): R19.7 - Diarrhea, unspecified Status: Acute Assessment and Plan: * New onset * Could be from the antibiotics * Abdominal CT ordered * Could be C. Diff * Started on oral vanco (11) Adenocarcinoma: Code(s): C80.1 - Malignant (primary) neoplasm, unspecified Status: Acute Assessment and Plan: * Abd/Pel CT shows a pancreatic mass consistent with adenocarcinoma, Liver masses and pleural-based left lung nodules, consistent with metastatic disease. * Talked to Dr. Solis stated that the patient is unlikely a candidate for treatment with all of her other comorbidities * Diagnostic paracentesis has been ordered, per son's
[2021-10-29] MEDS: carvediloL 12.5 MG TABLET PO (12:31)
--- NOTE | 2021-10-29 13:28 | PCRCNOTE ---
Window of time for administration has passed. See next scheduled administration.
[2021-10-29 13:47] LABS: Albumin Level 2.7 g/dL (3.5-5.1)
[2021-10-29 13:48] LABS: INR 1.6; Prothrombin Time 18.8 Seconds (11.1-14.7)
[2021-10-30] VITALS (15 sets, daily range): BP systolic 88–114; BP diastolic 45–60; PULSE 53–68; RESP 16–20; TEMP 36.1–37.3; O2SAT 95–99
[2021-10-30] MEDS: VANCOMYCIN ORAL 125 MG/2.5 ML SYRUP PO ×4 (02:08→17:03)
[2021-10-30] MEDS: LEVOTHYROXINE SODIUM 25 MCG TABLET PO (06:01)
[2021-10-30 07:41] LABS: Basophils Percent Auto 0.6 % (0.2-1.2); Eosinophils Absolute Auto 0.3 K/mm3 (0-0.3); Eosinophils Percent Auto 6.7 % (0-4.4); Hematocrit 32.7 % (37.0-47.0); Immature Granulocyte Absolute 0.02 K/mm3 (0.00-0.031); Immature Granulocyte Percent A 0.4 % (0-0.5); Lymphocytes Absolute Auto 0.98 K/mm3 (0.9-3.2); Lymphocytes Percent Auto 19.8 % (18.3-44.2); Mean Corpuscular HGB Conc 33.6 g/dl (32-36); Mean Corpuscular Volume 98.2 fl (80-100); Monocytes Absolute Auto 0.7 K/mm3 (0.1-0.6); Monocytes Percent Auto 14.1 % (2.6-8.5); Neutrophils Absolute Auto 2.9 K/mm3 (1.3-6.7); Neutrophils Percent Auto 58.4 % (45.5-73.1); Platelet Count Result 174 k/mm3 (150-375); Red Blood Count 3.33 M/mm3 (4.2-5.4); Red Cell Distribution Width 16.4 % (11.5-14.5)
[2021-10-30 08:00] LABS: Alanine Aminotransferase 19 U/L (4-35); Albumin Level 2.4 g/dL (3.5-5.1); Alkaline Phosphatase 162 U/L (38-126); Anion Gap 5 mmol/L (8-16); Aspartate Amino Transferase 35 U/L (14-36); Bilirubin,Total 0.5 mg/dL (0.2-1.3); Blood Urea Nitrogen 8 mg/dL (7-17); Calcium 8.2 mg/dL (8.4-10.2); Carbon Dioxide 28 mmol/L (22-30); Chloride 99 mmol/L (98-107); Estimated CRCL calculation 65 ml/min; Estimated Glomerular Filt Rate > 60; Glucose 105 mg/dL (65-110); Magnesium 1.8 mg/dL (1.6-2.3); Potassium 3.4 mmol/L (3.4-5.0); Sodium 132 mmol/L (137-145)
[2021-10-30] MEDS: UMECLIDINIUM/VILANTEROL 62.5-25 MCG ELLIPTA 1 PUFF INHALATION (08:26)
--- NOTE | 2021-10-30 09:00 | P.PNIM_ITS ---
Progress Note: A&P Assessment and Plan (1) Metabolic encephalopathy: Code(s): G93.41 - Metabolic encephalopathy Status: Acute Assessment and Plan: * She was able to tell me she was in the hospital, she is also able to tell me things about her medical health * Probably related to possible uti * Head ct Stable mild nonspecific cerebral white matter disease, which likely represents chronic small vessel ischemic disease. * Antibiotics started * monitor symptoms (2) Weakness: Code(s): R53.1 - Weakness Status: Acute Assessment and Plan: * Weakness is getting better, she is able to get to the commode and back to the bathroom with pivoting. * Probably from possible UTI * UA indicates possible UTI * She is also seeing PT/OT (3) COPD (chronic obstructive pulmonary disease): Code(s): J44.9 - Chronic obstructive pulmonary disease, unspecified Status: Chronic Assessment and Plan: * Continue home inhalers, add neb treatments * Seems to be stable at this time * No wheeze, sputum changes, or shortness of breath noted * Chest xray No acute cardiopulmonary disease. * Continue to trend SPO2 (4) Chronic respiratory failure: Code(s): J96.10 - Chronic respiratory failure, unspecified whether with hypoxia or hypercapnia Status: Acute Assessment and Plan: * On 3LNC at home * Currently on 3LNC * continue to monitor * Titrate oxygen to maintain saturation above 90% (5) Hypothyroidism: Code(s): E03.9 - Hypothyroidism, unspecified Status: Chronic Assessment and Plan: * Continue home levothyroxine * Check TSH 3.590 (6) Hypokalemia: Code(s): E87.6 - Hypokalemia Status: Acute Assessment and Plan: * K is 3.4 * Trend labs * Mag pending * Labs in the am (7) Abnormal urinalysis: Code(s): R82.90 - Unspecified abnormal findings in urine Status: Acute Assessment and Plan: * Ua suspicious for UTI * Continue ceftriaxone * 10/12/21 enterococcus species identified * Was treated with Keflex which is not significant for that bacteria * Repeat urine culture found enterococcus species * Vancomycin day 4 * Trend symptoms (8) Dizziness: Code(s): R42 - Dizziness and giddiness Status: Acute Assessment and Plan: * Reports dizziness * Head ct negative for bleed * Denies visual or hearing changes * Could be related to underlying infection * Add meclizine (9) Fall: Code(s): W19.XXXA - Unspecified fall, initial encounter Status: Acute Assessment and Plan: * Reports fall, weakness, and inability to walk * PT/OT * Could be from possible UTI (10) Diarrhea: Code(s): R19.7 - Diarrhea, unspecified Status: Acute Assessment and Plan: * Seems to be getting better * Could be from the antibiotics * Abdominal CT ordered * Could be C. Diff * Started on oral vanco (11) Adenocarcinoma: Code(s): C80.1 - Malignant (primary) neoplasm, unspecified Status: Acute Assessment and Plan: * Abd/Pel CT shows a pancreatic mass consistent with adenocarcinoma, Liver masses and pleural-based left lung nodules, consistent with metastatic disease. * Talked to Dr. Solis stated cait
--- NOTE | 2021-10-30 09:00 | PM.IMPN ---
Progress Note: A&P Assessment and Plan (1) Metabolic encephalopathy: Code(s): G93.41 - Metabolic encephalopathy Status: Acute Assessment and Plan: She was able to tell me she was in the hospital, she is also able to tell me things about her medical health Probably related to possible uti Head ct Stable mild nonspecific cerebral white matter disease, which likely represents chronic small vessel ischemic disease. Antibiotics started monitor symptoms (2) Weakness: Code(s): R53.1 - Weakness Status: Acute Assessment and Plan: Weakness is getting better, she is able to get to the commode and back to the bathroom with pivoting. Probably from possible UTI UA indicates possible UTI She is also seeing PT/OT (3) COPD (chronic obstructive pulmonary disease): Code(s): J44.9 - Chronic obstructive pulmonary disease, unspecified Status: Chronic Assessment and Plan: Continue home inhalers, add neb treatments Seems to be stable at this time No wheeze, sputum changes, or shortness of breath noted Chest xray No acute cardiopulmonary disease. Continue to trend SPO2 (4) Chronic respiratory failure: Code(s): J96.10 - Chronic respiratory failure, unspecified whether with hypoxia or hypercapnia Status: Acute Assessment and Plan: On 3LNC at home Currently on 3LNC continue to monitor Titrate oxygen to maintain saturation above 90% (5) Hypothyroidism: Code(s): E03.9 - Hypothyroidism, unspecified Status: Chronic Assessment and Plan: Continue home levothyroxine Check TSH 3.590 (6) Hypokalemia: Code(s): E87.6 - Hypokalemia Status: Acute Assessment and Plan: K is 3.4 Trend labs Mag pending Labs in the am (7) Abnormal urinalysis: Code(s): R82.90 - Unspecified abnormal findings in urine Status: Acute Assessment and Plan: Ua suspicious for UTI Continue ceftriaxone 10/12/21 enterococcus species identified Was treated with Keflex which is not significant for that bacteria Repeat urine culture found enterococcus species Vancomycin day 4 Trend symptoms (8) Dizziness: Code(s): R42 - Dizziness and giddiness Status: Acute Assessment and Plan: Reports dizziness Head ct negative for bleed Denies visual or hearing changes Could be related to underlying infection Add meclizine (9) Fall: Code(s): W19.XXXA - Unspecified fall, initial encounter Status: Acute Assessment and Plan: Reports fall, weakness, and inability to walk PT/OT Could be from possible UTI (10) Diarrhea: Code(s): R19.7 - Diarrhea, unspecified Status: Acute Assessment and Plan: Seems to be getting better Could be from the antibiotics Abdominal CT ordered Could be C. Diff Started on oral vanco (11) Adenocarcinoma: Code(s): C80.1 - Malignant (primary) neoplasm, unspecified Status: Acute Assessment and Plan: Abd/Pel CT shows a pancreatic mass consistent with adenocarcinoma, Liver masses and pleural-based left lung nodules, consistent with metastatic disease. Talked to Dr. Solis stated that the patient is unlikely a candidate for treatment with all of her other comorbidities Diagnostic paracentesis has been ordered, per son's request 300ml of yellow fluid was collected from paracentesis Cytology, and diagnostics are pending (12) Abdominal ascites: Code(s): R18.8 - Other ascites Status: Acute Assessment and Plan: Found on the CT Paracentesis completed and 300ml fluid collected Diagnostics also ordered (13) Pancreatic mass: Code(s): K86.89 - Other specified diseases of pancreas Status: Acute Assessment and Plan: Found on the CT 7.2x5.3cm pancreatic mass, consistent with pr
[2021-10-30] MEDS: MAGNESIUM SULF 2 GM/WATER 50ML 2 GM/50 ML BAG IVPB (14:11)
[2021-10-30] MEDS: POTASSIUM CHLORIDE 20 MEQ TABLET 40 MEQ PO (14:11)
[2021-10-30 16:00] LABS: Appearance Peritoneal Fluid Clear (Clear); Color Peritoneal Fluid Yellow (Colorless); Nucleated Cells Peritoneal Flu 513 /uL (0-500); Source Peritoneal Fluid Peritoneal Fluid
[2021-10-30 16:01] LABS: RBC Peritoneal Fluid 257 /uL (0-100000)
[2021-10-30 16:18] LABS: Eosinophils Peritoneal Fluid 7 %; Lymphocytes Peritoneal Fluid 16 %; Monocytes Peritoneal Fluid 17 %
[2021-10-30 16:19] LABS: Macrophages Peritoneal Fluid 60 %
[2021-10-30] MEDS: ALBUTEROL SULFATE NEB 2.5 MG/0.5 ML INH INHALATION (21:30)
[2021-10-31] VITALS (13 sets, daily range): BP systolic 88–99; BP diastolic 41–53; PULSE 61–67; RESP 14–19; TEMP 36.3–36.7; O2SAT 94–98
[2021-10-31] MEDS: VANCOMYCIN ORAL 125 MG/2.5 ML SYRUP PO ×4 (00:26→17:21)
--- NOTE | 2021-10-31 02:37 | PCRCNOTE ---
Window of time for administration has passed. See next scheduled administration.
[2021-10-31] MEDS: ALBUTEROL SULFATE NEB 2.5 MG/0.5 ML INH INHALATION ×4 (03:07→19:54)
[2021-10-31] MEDS: LEVOTHYROXINE SODIUM 25 MCG TABLET PO (07:11)
[2021-10-31 08:30] LABS: Basophils Percent Auto 0.6 % (0.2-1.2); Eosinophils Absolute Auto 0.3 K/mm3 (0-0.3); Eosinophils Percent Auto 4.2 % (0-4.4); Hemoglobin 11.6 g/dL (12.0-15.0); Immature Granulocyte Absolute 0.03 K/mm3 (0.00-0.031); Immature Granulocyte Percent A 0.5 % (0-0.5); Lymphocytes Absolute Auto 0.96 K/mm3 (0.9-3.2); Lymphocytes Percent Auto 15.6 % (18.3-44.2); Mean Corpuscular HGB Conc 34.1 g/dl (32-36); Mean Corpuscular Hemoglobin 33.1 pg (26-34); Mean Corpuscular Volume 97.1 fl (80-100); Mean Platelet Volume 11.7 fl (7.4-10.4); Monocytes Absolute Auto 0.8 K/mm3 (0.1-0.6); Monocytes Percent Auto 12.8 % (2.6-8.5); Neutrophils Absolute Auto 4.1 K/mm3 (1.3-6.7); Neutrophils Percent Auto 66.3 % (45.5-73.1); Platelet Count Result 164 k/mm3 (150-375); Red Cell Distribution Width 16.3 % (11.5-14.5); White Blood Count 6.2 K/mm3 (4.5-10.0)
[2021-10-31 09:22] LABS: Alanine Aminotransferase 29 U/L (4-35); Albumin Level 2.6 g/dL (3.5-5.1); Alkaline Phosphatase 223 U/L (38-126); Anion Gap 2 mmol/L (8-16); Aspartate Amino Transferase 56 U/L (14-36); Bilirubin,Total 0.6 mg/dL (0.2-1.3); Blood Urea Nitrogen 8 mg/dL (7-17); Calcium 8.4 mg/dL (8.4-10.2); Carbon Dioxide 30 mmol/L (22-30); Chloride 99 mmol/L (98-107); Estimated CRCL calculation 55 ml/min; Estimated Glomerular Filt Rate > 60; Glucose 109 mg/dL (65-110); Potassium 3.8 mmol/L (3.4-5.0); Sodium 131 mmol/L (137-145)
[2021-10-31] MEDS: CHOLECALCIFEROL 1,000 UNITS TABLET 5000 UNITS PO (09:36)
[2021-10-31] MEDS: GABAPENTIN 300 MG CAPSULE PO (09:37)
[2021-10-31] MEDS: ENOXAPARIN 40 MG/0.4 ML SYRINGE SUB-Q (09:37)
[2021-10-31] MEDS: SERTRALINE HCL 50 MG TABLET 100 MG PO (09:37)
--- NOTE | 2021-10-31 10:30 | P.PNIM_ITS ---
Progress Note: A&P Assessment and Plan (1) Weakness: Code(s): R53.1 - Weakness Status: Acute Assessment and Plan: * Weakness is getting better, she is able to get to the commode and back to the bathroom with pivoting. * Probably from possible UTI * UA indicates possible UTI * She is also seeing PT/OT (2) COPD (chronic obstructive pulmonary disease): Code(s): J44.9 - Chronic obstructive pulmonary disease, unspecified Status: Chronic Assessment and Plan: * Continue home inhalers, add neb treatments * Seems to be stable at this time * No wheeze, sputum changes, or shortness of breath noted * Chest xray No acute cardiopulmonary disease. * Continue to trend SPO2 (3) Chronic respiratory failure: Code(s): J96.10 - Chronic respiratory failure, unspecified whether with hypoxia or hypercapnia Status: Acute Assessment and Plan: * On 3LNC at home * Currently on 3LNC * continue to monitor * Titrate oxygen to maintain saturation above 90% (4) Hypothyroidism: Code(s): E03.9 - Hypothyroidism, unspecified Status: Chronic Assessment and Plan: * Continue home levothyroxine * Check TSH 3.590 (5) Hypokalemia: Code(s): E87.6 - Hypokalemia Status: Acute Assessment and Plan: * K is 3.8 * Trend labs * Mag pending * Labs in the am (6) Abnormal urinalysis: Code(s): R82.90 - Unspecified abnormal findings in urine Status: Acute Assessment and Plan: * Ua suspicious for UTI * Continue ceftriaxone * 10/12/21 enterococcus species identified * Was treated with Keflex which is not significant for that bacteria * Repeat urine culture found enterococcus species * Vancomycin day 5 * Trend symptoms Change to nitrofurantoin (7) Dizziness: Code(s): R42 - Dizziness and giddiness Status: Acute Assessment and Plan: * Reports dizziness * Head ct negative for bleed * Denies visual or hearing changes * Could be related to underlying infection * Add meclizine (8) Fall: Code(s): W19.XXXA - Unspecified fall, initial encounter Status: Acute Assessment and Plan: * Reports fall, weakness, and inability to walk * PT/OT * Could be from possible UTI (9) Diarrhea: Code(s): R19.7 - Diarrhea, unspecified Status: Acute Assessment and Plan: * Seems to be getting better * Could be from the antibiotics * Abdominal CT ordered * Could be C. Diff * Started on oral vanco (10) Adenocarcinoma: Code(s): C80.1 - Malignant (primary) neoplasm, unspecified Status: Acute Assessment and Plan: * Abd/Pel CT shows a pancreatic mass consistent with adenocarcinoma, Liver masses and pleural-based left lung nodules, consistent with metastatic disease. * Talked to Dr. Solis stated that the patient is unlikely a candidate for treatment with all of her other comorbidities * Consult Dr. Solis for further advice thank you * Diagnostic paracentesis has been ordered, per son's request * 300ml of yellow fluid was collected from paracentesis * PTH peritoneal fluid for adenocarcinoma * Cytology, and diagnostics are pending (11) Abdominal ascites: Code(s): R18.8 - Other ascites Status: Acute Assessment
--- NOTE | 2021-10-31 10:30 | PM.IMPN ---
Progress Note: A&P Assessment and Plan (1) Weakness: Code(s): R53.1 - Weakness Status: Acute Assessment and Plan: Weakness is getting better, she is able to get to the commode and back to the bathroom with pivoting. Probably from possible UTI UA indicates possible UTI She is also seeing PT/OT (2) COPD (chronic obstructive pulmonary disease): Code(s): J44.9 - Chronic obstructive pulmonary disease, unspecified Status: Chronic Assessment and Plan: Continue home inhalers, add neb treatments Seems to be stable at this time No wheeze, sputum changes, or shortness of breath noted Chest xray No acute cardiopulmonary disease. Continue to trend SPO2 (3) Chronic respiratory failure: Code(s): J96.10 - Chronic respiratory failure, unspecified whether with hypoxia or hypercapnia Status: Acute Assessment and Plan: On 3LNC at home Currently on 3LNC continue to monitor Titrate oxygen to maintain saturation above 90% (4) Hypothyroidism: Code(s): E03.9 - Hypothyroidism, unspecified Status: Chronic Assessment and Plan: Continue home levothyroxine Check TSH 3.590 (5) Hypokalemia: Code(s): E87.6 - Hypokalemia Status: Acute Assessment and Plan: K is 3.8 Trend labs Mag pending Labs in the am (6) Abnormal urinalysis: Code(s): R82.90 - Unspecified abnormal findings in urine Status: Acute Assessment and Plan: Ua suspicious for UTI Continue ceftriaxone 10/12/21 enterococcus species identified Was treated with Keflex which is not significant for that bacteria Repeat urine culture found enterococcus species Vancomycin day 5 Trend symptoms Change to nitrofurantoin (7) Dizziness: Code(s): R42 - Dizziness and giddiness Status: Acute Assessment and Plan: Reports dizziness Head ct negative for bleed Denies visual or hearing changes Could be related to underlying infection Add meclizine (8) Fall: Code(s): W19.XXXA - Unspecified fall, initial encounter Status: Acute Assessment and Plan: Reports fall, weakness, and inability to walk PT/OT Could be from possible UTI (9) Diarrhea: Code(s): R19.7 - Diarrhea, unspecified Status: Acute Assessment and Plan: Seems to be getting better Could be from the antibiotics Abdominal CT ordered Could be C. Diff Started on oral vanco (10) Adenocarcinoma: Code(s): C80.1 - Malignant (primary) neoplasm, unspecified Status: Acute Assessment and Plan: Abd/Pel CT shows a pancreatic mass consistent with adenocarcinoma, Liver masses and pleural-based left lung nodules, consistent with metastatic disease. Talked to Dr. Solis stated that the patient is unlikely a candidate for treatment with all of her other comorbidities Consult Dr. Solis for further advice thank you Diagnostic paracentesis has been ordered, per son's request 300ml of yellow fluid was collected from paracentesis PTH peritoneal fluid for adenocarcinoma Cytology, and diagnostics are pending (11) Abdominal ascites: Code(s): R18.8 - Other ascites Status: Acute Assessment and Plan: Found on the CT Paracentesis completed and 300ml fluid collected Diagnostics also ordered (12) Pancreatic mass: Code(s): K86.89 - Other specified diseases of pancreas Status: Acute Assessment and Plan: Found on the CT 7.2x5.3cm pancreatic mass, consistent with primary adenocarcinoma Work up in process (13) Metabolic encephalopathy: Code(s): G93.41 - Metabolic encephalopathy Status: Acute Assessment and Plan: She was able to tell me she was in the hospital, she is also able to tell me things about her medical health Probably related to possible uti Head c
[2021-10-31 12:17] LABS: Vancomycin Trough 25.7 ug/mL (10.0-20.0)
--- NOTE | 2021-10-31 14:24 | PCPTNOTE ---
Patient refused treatment this session due to not feeling well.
[2021-10-31] MEDS: LACTATED RINGERS 500 ML 999 ML IV CONT (16:16)
[2021-11-01] VITALS (9 sets, daily range): BP systolic 104–149; BP diastolic 39–62; PULSE 62–79; RESP 15–26; TEMP 36.7–37.5; O2SAT 94–98
[2021-11-01] MEDS: VANCOMYCIN ORAL 125 MG/2.5 ML SYRUP PO ×4 (00:43→17:14)
[2021-11-01 01:24] LABS: Vancomycin Trough 22.4 ug/mL (10.0-20.0)
[2021-11-01] MEDS: LEVOTHYROXINE SODIUM 25 MCG TABLET PO (05:45)
[2021-11-01 07:26] LABS: Basophils Percent Auto 0.6 % (0.2-1.2); Eosinophils Absolute Auto 0.3 K/mm3 (0-0.3); Eosinophils Percent Auto 4.2 % (0-4.4); Hematocrit 33.7 % (37.0-47.0); Hemoglobin 11.4 g/dL (12.0-15.0); Immature Granulocyte Absolute 0.02 K/mm3 (0.00-0.031); Immature Granulocyte Percent A 0.3 % (0-0.5); Lymphocytes Absolute Auto 0.98 K/mm3 (0.9-3.2); Lymphocytes Percent Auto 15.9 % (18.3-44.2); Mean Corpuscular HGB Conc 33.8 g/dl (32-36); Mean Corpuscular Hemoglobin 33.1 pg (26-34); Mean Platelet Volume 11.3 fl (7.4-10.4); Monocytes Absolute Auto 0.9 K/mm3 (0.1-0.6); Monocytes Percent Auto 14.9 % (2.6-8.5); Neutrophils Percent Auto 64.1 % (45.5-73.1); Platelet Count Result 159 k/mm3 (150-375); Red Blood Count 3.44 M/mm3 (4.2-5.4); Red Cell Distribution Width 16.4 % (11.5-14.5); White Blood Count 6.2 K/mm3 (4.5-10.0)
[2021-11-01 07:40] LABS: Alanine Aminotransferase 39 U/L (4-35); Albumin Level 2.5 g/dL (3.5-5.1); Alkaline Phosphatase 264 U/L (38-126); Anion Gap 5 mmol/L (8-16); Aspartate Amino Transferase 71 U/L (14-36); Bilirubin,Total 0.8 mg/dL (0.2-1.3); Blood Urea Nitrogen 8 mg/dL (7-17); Calcium 8.1 mg/dL (8.4-10.2); Carbon Dioxide 27 mmol/L (22-30); Chloride 98 mmol/L (98-107); Estimated CRCL calculation 48 ml/min; Estimated Glomerular Filt Rate > 60; Glucose 97 mg/dL (65-110); Potassium 3.8 mmol/L (3.4-5.0); Sodium 130 mmol/L (137-145)
--- NOTE | 2021-11-01 08:45 | PM.IMPN ---
Progress Note: A&P Assessment and Plan (1) Weakness: Code(s): R53.1 - Weakness Status: Acute Assessment and Plan: Weakness is getting better, she is able to get to the commode and back to the bathroom with pivoting. She still has not really been up walking Probably from possible UTI UA indicates possible UTI She is also seeing PT/OT (2) COPD (chronic obstructive pulmonary disease): Code(s): J44.9 - Chronic obstructive pulmonary disease, unspecified Status: Chronic Assessment and Plan: Continue home inhalers, add neb treatments Seems to be stable at this time No wheeze, sputum changes, or shortness of breath noted Chest xray No acute cardiopulmonary disease. Continue to trend SPO2 (3) Chronic respiratory failure: Code(s): J96.10 - Chronic respiratory failure, unspecified whether with hypoxia or hypercapnia Status: Acute Assessment and Plan: On 3LNC at home Currently on 3LNC continue to monitor Titrate oxygen to maintain saturation above 90% Will need a walk test (4) Hypothyroidism: Code(s): E03.9 - Hypothyroidism, unspecified Status: Chronic Assessment and Plan: Continue home levothyroxine Check TSH 3.590 (5) Hypokalemia: Code(s): E87.6 - Hypokalemia Status: Acute Assessment and Plan: K is 3.8 Trend labs Mag 2.0 Labs in the am (6) Abnormal urinalysis: Code(s): R82.90 - Unspecified abnormal findings in urine Status: Acute Assessment and Plan: Ua suspicious for UTI Continue ceftriaxone 10/12/21 enterococcus species identified Was treated with Keflex which is not significant for that bacteria Repeat urine culture found enterococcus species Vancomycin day 6, changed to Change to nitrofurantoin for 7 days Trend symptoms (7) Dizziness: Code(s): R42 - Dizziness and giddiness Status: Acute Assessment and Plan: Reports dizziness Head ct negative for bleed Denies visual or hearing changes Could be related to underlying infection Add meclizine (8) Fall: Code(s): W19.XXXA - Unspecified fall, initial encounter Status: Acute Assessment and Plan: Reports fall, weakness, and inability to walk PT/OT Could be from possible UTI (9) Diarrhea: Code(s): R19.7 - Diarrhea, unspecified Status: Acute Assessment and Plan: Seems to be getting better Could be from the antibiotics Abdominal CT ordered Could be C. Diff Started on oral vanco (10) Adenocarcinoma: Code(s): C80.1 - Malignant (primary) neoplasm, unspecified Status: Acute Assessment and Plan: Abd/Pel CT shows a pancreatic mass consistent with adenocarcinoma, Liver masses and pleural-based left lung nodules, consistent with metastatic disease. Talked to Dr. Solis stated that the patient is unlikely a candidate for treatment with all of her other comorbidities Consult Dr. Solis for further advice thank you Diagnostic paracentesis has been ordered, per son's request 300ml of yellow fluid was collected from paracentesis PTH peritoneal fluid for adenocarcinoma Cytology, and diagnostics are pending (11) Abdominal ascites: Code(s): R18.8 - Other ascites Status: Acute Assessment and Plan: Found on the CT Paracentesis completed and 300ml fluid collected Diagnostics also ordered (12) Pancreatic mass: Code(s): K86.89 - Other specified diseases of pancreas Status: Acute Assessment and Plan: Found on the CT 7.2x5.3cm pancreatic mass, consistent with primary adenocarcinoma Work up in process (13) Metabolic encephalopathy: Code(s): G93.41 - Metabolic encephalopathy Status: Acute Assessment and Plan: She was able to tell me she was in the hospital however, she thinks
[2021-11-01] MEDS: ALBUTEROL SULFATE NEB 2.5 MG/0.5 ML INH INHALATION ×3 (08:58→20:58)
[2021-11-01] MEDS: UMECLIDINIUM/VILANTEROL 62.5-25 MCG ELLIPTA 1 PUFF INHALATION ×2 (08:59→13:35)
[2021-11-01] MEDS: CHOLECALCIFEROL 1,000 UNITS TABLET 5000 UNITS PO (09:03)
[2021-11-01] MEDS: ENOXAPARIN 40 MG/0.4 ML SYRINGE SUB-Q (09:03)
[2021-11-01] MEDS: SERTRALINE HCL 50 MG TABLET 100 MG PO (09:04)
[2021-11-01] MEDS: GABAPENTIN 300 MG CAPSULE PO (09:04)
--- NOTE | 2021-11-01 11:02 | PCNFU ---
Nutrition Follow-Up Complete: Inadequate oral intake related to aging and decreased appetite as evidenced by average meal consumption of 12%. Goal: Patient to meet estimated nutritional needs. Pt. is progressing towards goal. No new goal at this time. Pt current nutrition is a regular diet. Last recorded weight is 57 kg. Recommend re-weighing pt. prior to discharge. Bowel Motility: +BM 10/28/2021 Labs Reviewed: Hgb 11.4, Hct 33.7, Alb 2.5, Na 130 Meds Noted: Albuterol, Lovenox, Neurontin, Atrovent neb, Synthroid, Zoloft, Vancomycin Hcl, Vitamin D Skin: No skin breakdown at this time. WNL. Additional Notes: Checked in with patient. Patient appeared to be slightly confused. She is receiving frozen nutritional treat BID providing 300 calories and 9 grams of protein to increase oral intake. Pt. reports having a poor appetite and is not eating much other than the frozen nutritional treat per nursing. Encouraged pt. to eat as much as possible during meals. Pt. weakness is improving. Monitor pt. labs, medications, weight and oral intake every 5 days.
--- NOTE | 2021-11-01 17:11 | PDONCCN ---
HPI - Date of Consult Date/Time: 11/01/21 17:11 Requesting Physician: Alexandr Eaton MD Primary Care Provider: Cassandra Robledo, C[employer] - Consult Narrative Reason for consult: Likely metastatic pancreatic cancer Narrative: Cherelle Lynn is a 81 year old female with history of COPD, hyperlipidemia and hypertension who is a assisted living resident came into the ER status post fall. She has been eating poorly and has lost almost 60-70 lb weight over the last several months duration. She denies any abdominal pain nausea vomiting and diarrhea. She has some shortness of breath and currently on 3 L of oxygen per nasal cannula. In September of 2021 she was diagnosed with UTI. She has been complaining of tiredness and fatigue. CT abdomen and pelvis was performed that showed 7.2 x 5.3 cm pancreatic mass consistent with pancreatic adenocarcinoma with liver masses and pleural based left lung nodule consistent with metastatic disease. Patient had moderate volume of ascites and peritoneal carcinomatosis. Thoracentesis was performed with 3 mL of fluid was removed. Cytology is pending. Review of Systems - Review of Systems All systems reviewed & are unremarkable except as noted in HPI and bel - Neurologic Reports confusion, Reports weakness, Denies syncope, Denies focal weakness, Denies numbness PMF Medical History: Medical History (Last Reviewed 10/27/21 @ 10:51 by NOHELIA Mace) Bowlegged with multiple surgical procedures to correct but had complications and was not corrected COPD (chronic obstructive pulmonary disease) Depression Hypertension Hypothyroidism Hypoxemia Macular degeneration Pain, chronic Surgical History: Surgical History (Last Reviewed 10/27/21 @ 10:51 by NOHELIA Mace) H/O knee surgery bilateral for Varus deformity, deformity remains after surgery Hx of cataract extraction Family History: Family History (Last Reviewed 10/12/21 @ 17:23 by Yesika Dennis MD) Mother Heart disease Diabetes mellitus Father Heart disease - Social History Social History: Social History (Last Updated 10/27/21 @ 10:54 by NOHELIA Mace) Gender Identity: Gender identity (if verbalized by the patient): Female Sexual Orientation: Sexual Orientation (if Verbalized by the Patient): Straight or Heterosexual Alcohol Use: Alcohol intake: former Substance Use: Substance use: former Others: Spiritual care concerns: No Agree to blood products: Yes Living Arrangements: Living arrangements: alone Oppucation/Education: Occupation/Education: retired Smoking Status: Smoking status: Former smoker Tobacco type: cigarettes Comments: Additional smoking assessment comments: reports quit 2 years ago, no length of time noted, she does not know Meds Home Medications Medication Instructions Recorded Confirmed Type Anoro Ellipta 1 inh INHALATION DAILY 05/10/21 10/26/21 History albuterol sulfate 1 inh INHALATION Q4H PRN 05/10/21 10/27/21 History carvedilol [Coreg] 12.5 mg PO QNOON 05/10/21 10/26/21 History gabapentin 300 mg PO DAILY 05/10/21 10/26/21 History hydrocodone-acetaminophen 1 tablet PO Q6H PRN 05/10/21 10/26/21 History ibuprofen 800 mg PO Q8H PRN 05/10/21 10/26/21 History levothyroxine 25 mcg PO DAILY 05/10/21 10/26/21 History sertraline 100 mg PO DAILY 05/10/21 10/26/21 History cholecalciferol (vitamin D3) 125 mcg PO DAILY 10/26/21 10/26/21 History [Vitamin D3] ipratropium-albuterol 3 ml INHALATION TID PRN 10/26/21 10/26/21 History Allergies Allergy/AdvReac Type Severity Reaction Status Date / Time No Known Allergies Allergy Verified 10/26/21 11:52 Results - Labs CBC & Chem 7: 11/01/21 07:20 11/01/21 07:20 Labs: Short CBC 11/01/21 Range/Units 07:20 WBC 6.2 (4.5-10.0) K/mm3 Hgb 11.4 L (12.0-15.0) g/dL Hct 33.7 L (37.0-47.0) % Plt Count 159 (150-375) k/mm3 BMP
[2021-11-01] MEDS: NITROFURANTOIN MONOHYD MACROCR 100 MG CAP PO (20:21)
[2021-11-02] VITALS (11 sets, daily range): BP systolic 100–105; BP diastolic 47–54; PULSE 68–91; RESP 16–22; TEMP 35.9–36.6; O2SAT 90–96
[2021-11-02] MEDS: ALBUTEROL SULFATE NEB 2.5 MG/0.5 ML INH INHALATION ×5 (00:06→20:31)
[2021-11-02] MEDS: VANCOMYCIN ORAL 125 MG/2.5 ML SYRUP PO ×4 (01:16→17:05)
[2021-11-02] MEDS: LEVOTHYROXINE SODIUM 25 MCG TABLET PO (07:40)
[2021-11-02] MEDS: NITROFURANTOIN MONOHYD MACROCR 100 MG CAP PO ×2 (08:48→21:09)
[2021-11-02] MEDS: CHOLECALCIFEROL 1,000 UNITS TABLET 5000 UNITS PO (08:48)
[2021-11-02] MEDS: SERTRALINE HCL 50 MG TABLET 100 MG PO (08:48)
[2021-11-02] MEDS: ENOXAPARIN 40 MG/0.4 ML SYRINGE SUB-Q (08:48)
[2021-11-02] MEDS: GABAPENTIN 300 MG CAPSULE PO (08:48)
[2021-11-02 09:21] LABS: Basophils Percent Auto 0.6 % (0.2-1.2); Eosinophils Absolute Auto 0.2 K/mm3 (0-0.3); Eosinophils Percent Auto 3.1 % (0-4.4); Hematocrit 35.9 % (37.0-47.0); Hemoglobin 11.8 g/dL (12.0-15.0); Immature Granulocyte Absolute 0.03 K/mm3 (0.00-0.031); Immature Granulocyte Percent A 0.5 % (0-0.5); Lymphocytes Absolute Auto 0.96 K/mm3 (0.9-3.2); Mean Corpuscular HGB Conc 32.9 g/dl (32-36); Mean Corpuscular Hemoglobin 32.7 pg (26-34); Mean Corpuscular Volume 99.4 fl (80-100); Mean Platelet Volume 12.4 fl (7.4-10.4); Monocytes Absolute Auto 0.9 K/mm3 (0.1-0.6); Monocytes Percent Auto 13.7 % (2.6-8.5); Neutrophils Absolute Auto 4.3 K/mm3 (1.3-6.7); Neutrophils Percent Auto 67.1 % (45.5-73.1); Platelet Count Result 184 k/mm3 (150-375); Red Blood Count 3.61 M/mm3 (4.2-5.4); Red Cell Distribution Width 16.3 % (11.5-14.5); White Blood Count 6.4 K/mm3 (4.5-10.0)
[2021-11-02 09:37] LABS: Alanine Aminotransferase 47 U/L (4-35); Alkaline Phosphatase 309 U/L (38-126); Anion Gap 8 mmol/L (8-16); Aspartate Amino Transferase 75 U/L (14-36); Bilirubin,Total 0.7 mg/dL (0.2-1.3); Blood Urea Nitrogen 9 mg/dL (7-17); Calcium 8.5 mg/dL (8.4-10.2); Carbon Dioxide 27 mmol/L (22-30); Chloride 97 mmol/L (98-107); Estimated CRCL calculation 48 ml/min; Estimated Glomerular Filt Rate > 60; Glucose 95 mg/dL (65-110); Magnesium 1.9 mg/dL (1.6-2.3); Potassium 3.6 mmol/L (3.4-5.0); Sodium 132 mmol/L (137-145)
[2021-11-02 10:29] LABS: Hepatitis B Surface Antigen Negative (Negative)
[2021-11-02 10:35] LABS: HAV RESULT Negative (Negative); Hepatitis B Core IgM Result Negative (Negative)
[2021-11-02 10:47] LABS: Hepatitis C Virus Antibody Negative (Negative)
--- NOTE | 2021-11-02 13:53 | P.PNIM_ITS ---
Progress Note: A&P Assessment and Plan (1) Weakness: Code(s): R53.1 - Weakness Status: Acute Assessment and Plan: * Weakness is getting better, she is able to get to the commode and back to the bathroom with pivoting. * She still has not really been up walking * Probably from possible UTI * UA indicates possible UTI * She is also seeing PT/OT (2) COPD (chronic obstructive pulmonary disease): Code(s): J44.9 - Chronic obstructive pulmonary disease, unspecified Status: Chronic Assessment and Plan: * Continue home inhalers, add neb treatments * Seems to be stable at this time * No wheeze, sputum changes, or shortness of breath noted * Chest xray No acute cardiopulmonary disease. * Continue to trend SPO2 (3) Chronic respiratory failure: Code(s): J96.10 - Chronic respiratory failure, unspecified whether with hypoxia or hypercapnia Status: Acute Assessment and Plan: * On 3LNC at home * Currently on 3LNC * continue to monitor * Titrate oxygen to maintain saturation above 90% * Will need a walk test (4) Hypothyroidism: Code(s): E03.9 - Hypothyroidism, unspecified Status: Chronic Assessment and Plan: * Continue home levothyroxine * Check TSH 3.590 (5) Hypokalemia: Code(s): E87.6 - Hypokalemia Status: Acute Assessment and Plan: * K is 3.8 * Trend labs * Mag 2.0 * Labs in the am (6) Abnormal urinalysis: Code(s): R82.90 - Unspecified abnormal findings in urine Status: Acute Assessment and Plan: * Ua suspicious for UTI * Continue ceftriaxone * 10/12/21 enterococcus species identified * Was treated with Keflex which is not significant for that bacteria * Repeat urine culture found enterococcus species * Vancomycin day 6, changed to Change to nitrofurantoin for 7 days * Trend symptoms (7) Dizziness: Code(s): R42 - Dizziness and giddiness Status: Acute Assessment and Plan: * Reports dizziness * Head ct negative for bleed * Denies visual or hearing changes * Could be related to underlying infection * Add meclizine (8) Fall: Code(s): W19.XXXA - Unspecified fall, initial encounter Status: Acute Assessment and Plan: * Reports fall, weakness, and inability to walk * PT/OT * Could be from possible UTI (9) Diarrhea: Code(s): R19.7 - Diarrhea, unspecified Status: Acute Assessment and Plan: * Seems to be getting better * Could be from the antibiotics * Abdominal CT ordered * Could be C. Diff * Started on oral vanco (10) Adenocarcinoma: Code(s): C80.1 - Malignant (primary) neoplasm, unspecified Status: Acute Assessment and Plan: * Abd/Pel CT shows a pancreatic mass consistent with adenocarcinoma, Liver masses and pleural-based left lung nodules, consistent with metastatic disease. * Talked to Dr. Solis stated that the patient is unlikely a candidate for treatment with all of her other comorbidities * Consult Dr. Solis for further advice thank you * Diagnostic paracentesis has been ordered, per son's request * 300ml of yellow fluid was collected from paracentesis * PTH peritoneal fluid for adenocarcinoma * Cytology, and diagnostics are pending * * Family is opting for hos
--- NOTE | 2021-11-02 16:14 | PCRCNOTE ---
Window of time for administration has passed. See next scheduled administration. Window of time for administration has passed. See next scheduled administration.
[2021-11-02] MEDS: UMECLIDINIUM/VILANTEROL 62.5-25 MCG ELLIPTA 1 PUFF INHALATION (16:23)
[2021-11-02] MEDS: ACETAMINOPHEN 325 MG TABLET 650 MG PO (21:35)
[2021-11-03] VITALS (12 sets, daily range): BP systolic 102–112; BP diastolic 48–61; PULSE 67–88; RESP 15–26; TEMP 36.4–36.9; O2SAT 99–100
[2021-11-03] MEDS: ALBUTEROL SULFATE NEB 2.5 MG/0.5 ML INH INHALATION ×6 (00:28→23:13)
[2021-11-03] MEDS: VANCOMYCIN ORAL 125 MG/2.5 ML SYRUP PO ×4 (00:46→17:11)
[2021-11-03] MEDS: LEVOTHYROXINE SODIUM 25 MCG TABLET PO (06:24)
[2021-11-03] MEDS: NITROFURANTOIN MONOHYD MACROCR 100 MG CAP PO ×2 (08:31→21:43)
[2021-11-03] MEDS: CHOLECALCIFEROL 1,000 UNITS TABLET 5000 UNITS PO (08:31)
[2021-11-03] MEDS: GABAPENTIN 300 MG CAPSULE PO (08:31)
[2021-11-03] MEDS: SERTRALINE HCL 50 MG TABLET 100 MG PO (08:31)
[2021-11-03] MEDS: ENOXAPARIN 40 MG/0.4 ML SYRINGE SUB-Q (08:31)
[2021-11-03] MEDS: UMECLIDINIUM/VILANTEROL 62.5-25 MCG ELLIPTA 1 PUFF INHALATION (08:43)
[2021-11-03] MEDS: SACCHAROMYCES BOULARDII 250 MG CAPSULE PO (17:11)
[2021-11-03 20:16] LABS: Amylase Peritoneal Fluid <10 U/L
[2021-11-04] VITALS (7 sets, daily range): BP systolic 82–119; BP diastolic 42–66; PULSE 69–84; RESP 16–18; TEMP 36.6–36.9; O2SAT 98–100
[2021-11-04] MEDS: VANCOMYCIN ORAL 125 MG/2.5 ML SYRUP PO ×3 (01:30→14:43)
[2021-11-04] MEDS: ALBUTEROL SULFATE NEB 2.5 MG/0.5 ML INH INHALATION ×4 (04:03→16:25)
[2021-11-04 04:34] LABS: Glucose Peritoneal Fluid 107 mg/dL; LDH Peritoneal Fluid 69 U/L (<63); Total Protein Peritoneal Fluid <3.0 g/dL
[2021-11-04] MEDS: LEVOTHYROXINE SODIUM 25 MCG TABLET PO (05:30)
[2021-11-04] MEDS: ENOXAPARIN 40 MG/0.4 ML SYRINGE SUB-Q (09:09)
[2021-11-04] MEDS: GABAPENTIN 300 MG CAPSULE PO (09:09)
[2021-11-04] MEDS: SERTRALINE HCL 50 MG TABLET 100 MG PO (09:09)
[2021-11-04] MEDS: SACCHAROMYCES BOULARDII 250 MG CAPSULE PO (09:09)
[2021-11-04] MEDS: NITROFURANTOIN MONOHYD MACROCR 100 MG CAP PO (09:09)
[2021-11-04] MEDS: CHOLECALCIFEROL 1,000 UNITS TABLET 5000 UNITS PO (09:09)
[2021-11-04] MEDS: UMECLIDINIUM/VILANTEROL 62.5-25 MCG ELLIPTA 1 PUFF INHALATION (09:36)
--- NOTE | 2021-11-04 10:00 | PM.DS ---
DS: Admitting Diagnosis Discharge Date 11/04/21 1000 Admitting Diagnosis UTI/metastatic cancer of the liver, pancreas, lungs DS: Discharge Diagnosis Discharge Diagnosis (1) Weakness: Code(s): R53.1 - Weakness Status: Acute Assessment and Plan: Weakness is getting better, she is able to get to the commode and back to the bathroom with pivoting. She still has not really been up walking Probably from possible UTI UA indicates possible UTI She is also seeing PT/OT (2) COPD (chronic obstructive pulmonary disease): Code(s): J44.9 - Chronic obstructive pulmonary disease, unspecified Status: Chronic Assessment and Plan: Continue home inhalers, add neb treatments Seems to be stable at this time No wheeze, sputum changes, or shortness of breath noted Chest xray No acute cardiopulmonary disease. Continue to trend SPO2 (3) Chronic respiratory failure: Code(s): J96.10 - Chronic respiratory failure, unspecified whether with hypoxia or hypercapnia Status: Acute Assessment and Plan: On 3LNC at home Currently on 3LNC continue to monitor Titrate oxygen to maintain saturation above 90% Will need a walk test (4) Hypothyroidism: Code(s): E03.9 - Hypothyroidism, unspecified Status: Chronic Assessment and Plan: Continue home levothyroxine Check TSH 3.590 (5) Hypokalemia: Code(s): E87.6 - Hypokalemia Status: Acute Assessment and Plan: K is 3.8 Trend labs Mag 2.0 Labs in the am (6) Abnormal urinalysis: Code(s): R82.90 - Unspecified abnormal findings in urine Status: Acute Assessment and Plan: Ua suspicious for UTI Continue ceftriaxone 10/12/21 enterococcus species identified Was treated with Keflex which is not significant for that bacteria Repeat urine culture found enterococcus species Vancomycin day 6, changed to Change to nitrofurantoin for 7 days Trend symptoms (7) Dizziness: Code(s): R42 - Dizziness and giddiness Status: Acute Assessment and Plan: Reports dizziness Head ct negative for bleed Denies visual or hearing changes Could be related to underlying infection Add meclizine (8) Fall: Code(s): W19.XXXA - Unspecified fall, initial encounter Status: Acute Assessment and Plan: Reports fall, weakness, and inability to walk PT/OT Could be from possible UTI (9) Diarrhea: Code(s): R19.7 - Diarrhea, unspecified Status: Acute Assessment and Plan: Seems to be getting better Could be from the antibiotics Abdominal CT ordered Could be C. Diff Started on oral vanco (10) Adenocarcinoma: Code(s): C80.1 - Malignant (primary) neoplasm, unspecified Status: Acute Assessment and Plan: Abd/Pel CT shows a pancreatic mass consistent with adenocarcinoma, Liver masses and pleural-based left lung nodules, consistent with metastatic disease. Talked to Dr. Solis stated that the patient is unlikely a candidate for treatment with all of her other comorbidities Consult Dr. Solis for further advice thank you Diagnostic paracentesis has been ordered, per son's request 300ml of yellow fluid was collected from paracentesis PTH peritoneal fluid for adenocarcinoma Cytology, and diagnostics are pending Family is opting for hospice care With [place] meetings schedule. She wants to go back to her previous living arrangement very she is to live alone which might not be safe at this point. Discussion ongoing at a safe disposition. (11) Abdominal ascites: Code(s): R18.8 - Other ascites Status: Acute Assessment and Plan: Found on the CT Paracentesis completed and 300ml fluid collected Diagnostics also ordered (12) Pancreatic mass: Code(s): K86.89 - Other specified diseases of pancrea
--- NOTE | 2021-11-04 10:00 | P.DS_ITS ---
DS: Admitting Diagnosis Discharge Date 11/04/21 1000 Admitting Diagnosis UTI/metastatic cancer of the liver, pancreas, lungs DS: Discharge Diagnosis Discharge Diagnosis (1) Weakness: Code(s): R53.1 - Weakness Status: Acute Assessment and Plan: * Weakness is getting better, she is able to get to the commode and back to the bathroom with pivoting. * She still has not really been up walking * Probably from possible UTI * UA indicates possible UTI * She is also seeing PT/OT (2) COPD (chronic obstructive pulmonary disease): Code(s): J44.9 - Chronic obstructive pulmonary disease, unspecified Status: Chronic Assessment and Plan: * Continue home inhalers, add neb treatments * Seems to be stable at this time * No wheeze, sputum changes, or shortness of breath noted * Chest xray No acute cardiopulmonary disease. * Continue to trend SPO2 (3) Chronic respiratory failure: Code(s): J96.10 - Chronic respiratory failure, unspecified whether with hypoxia or hypercapnia Status: Acute Assessment and Plan: * On 3LNC at home * Currently on 3LNC * continue to monitor * Titrate oxygen to maintain saturation above 90% * Will need a walk test (4) Hypothyroidism: Code(s): E03.9 - Hypothyroidism, unspecified Status: Chronic Assessment and Plan: * Continue home levothyroxine * Check TSH 3.590 (5) Hypokalemia: Code(s): E87.6 - Hypokalemia Status: Acute Assessment and Plan: * K is 3.8 * Trend labs * Mag 2.0 * Labs in the am (6) Abnormal urinalysis: Code(s): R82.90 - Unspecified abnormal findings in urine Status: Acute Assessment and Plan: * Ua suspicious for UTI * Continue ceftriaxone * 10/12/21 enterococcus species identified * Was treated with Keflex which is not significant for that bacteria * Repeat urine culture found enterococcus species * Vancomycin day 6, changed to Change to nitrofurantoin for 7 days * Trend symptoms (7) Dizziness: Code(s): R42 - Dizziness and giddiness Status: Acute Assessment and Plan: * Reports dizziness * Head ct negative for bleed * Denies visual or hearing changes * Could be related to underlying infection * Add meclizine (8) Fall: Code(s): W19.XXXA - Unspecified fall, initial encounter Status: Acute Assessment and Plan: * Reports fall, weakness, and inability to walk * PT/OT * Could be from possible UTI (9) Diarrhea: Code(s): R19.7 - Diarrhea, unspecified Status: Acute Assessment and Plan: * Seems to be getting better * Could be from the antibiotics * Abdominal CT ordered * Could be C. Diff * Started on oral vanco (10) Adenocarcinoma: Code(s): C80.1 - Malignant (primary) neoplasm, unspecified Status: Acute Assessment and Plan: * Abd/Pel CT shows a pancreatic mass consistent with adenocarcinoma, Liver masses and pleural-based left lung nodules, consistent with metastatic disease. * Talked to Dr. Solis stated that the patient is unlikely a candidate for treatment with all of her other comorbidities * Consult Dr. Solis for further advice thank you * Diagnostic paracentesis has been ordered, per son's request * 300ml of yellow fluid was
--- NOTE | 2021-11-04 14:42 | PCOTNOTE ---
Attempted OT tx today x2. Patient declined due to being too fatigued.
[2021-11-05 07:17] LABS: Albumin Peritoneal Fluid 0.9 g/dL
== END 2021-11-04 18:36 | disposition hospice, inpatient (51) | DRG 435 ==
LOC: ANHED 14:07 → ANH3MEDSUR 21:26
PROVIDERS: Emergency Medicine; Internal Medicine; Nurse Practitioner; Admitting Provider Internal Medicine; Emergency Provider Emergency Medicine; PCP Registered Nurse; Visit Provider Internal Medicine
DX: C25.9 Malignant neoplasm of pancreas, unspecified (principal); G93.41 Metabolic encephalopathy; R18.8 Other ascites; C78.02 Secondary malignant neoplasm of left lung; C78.6 Secondary malignant neoplasm of retroperitoneum and peritoneum; J96.11 Chronic respiratory failure with hypoxia; C78.7 Secondary malignant neoplasm of liver and intrahepatic bile duct; N39.0 Urinary tract infection, site not specified; B95.2 Enterococcus as the cause of diseases classified elsewhere; K86.89 Other specified diseases of pancreas; Z99.81 Dependence on supplemental oxygen; R53.1 Weakness; R42 Dizziness and giddiness; W19.XXXA Unspecified fall, initial encounter; J43.9 Emphysema, unspecified; E87.6 Hypokalemia; E78.5 Hyperlipidemia, unspecified; I10 Essential (primary) hypertension; E03.9 Hypothyroidism, unspecified; R74.01 Elevation of levels of liver transaminase levels; R19.7 Diarrhea, unspecified; Z79.899 Other long term (current) drug therapy; Z86.16 Personal history of COVID-19; Z87.891 Personal history of nicotine dependence; Z98.49 Cataract extraction status, unspecified eye
CPT/HCPCS: 36415; 49083; 51701; 70450; 71045; 74177; 76705; 80048; 80053; 80074; 80202; 81001; 82040; 82042; 82150; 82945; 83615; 83735; 84132; 84157; 84443; 85025; 85027; 85610; 87070; 87075; 87077; 87086; 87088; 87186; 87205; 88104; 88108; 88305; 89051; 93005; 94640; 96365; 96366; 96375; 97110; 97162; 97165; 97530; 97535; 99285; A9270; C1751; G0378; J0696; J1650; J3370; J3475; J3480; J7040; J7120; Q9967